=== PATIENT | female | born 1935 | race Caucasian/White ===

== ENCOUNTER → 2024-04-22 13:03 | Outpatient (REF) | payer OTHER, SELFPAY | LOC: HWRAD 13:03 | PROVIDERS: ATTENDING PHYSICIAN Internal Medicine | DX: E04.1 Nontoxic single thyroid nodule (principal); R49.0 Dysphonia | CPT/HCPCS: 71046; 76536 ==

== ENCOUNTER → 2024-11-15 12:35 | Outpatient (REF) | payer OTHER, SELFPAY | LOC: HWRCS 12:35 | PROVIDERS: ATTENDING PHYSICIAN Internal Medicine Cardiovascular Disease; FAMILY PHYSICIAN Internal Medicine | DX: I25.10 Atherosclerotic heart disease of native coronary artery without angina pectoris (principal) | CPT/HCPCS: 93306 ==

== ENCOUNTER 2025-01-30 18:01 | Inpatient (IN) | payer OTHER, SELFPAY ==
[2025-01-30] VITALS (12 sets, daily range): BP systolic 138–171; BP diastolic 59–129
[2025-01-30 14:55] LABS: Hematocrit 43.2 % (37.0-47.0); Hemoglobin 14.5 g/dL (12.0-16.0); Mean Corp Hgb Conc. 33.6 g/dL (33.0-37.0); Mean Corpuscular Volume 89.8 fL (81.0-99.0); Nucleated Red Blood Cells % 0 %; Platelet Count 250 10^3/uL (130-400); Red Cell Dist. Width 12.8 % (11.5-14.5)
[2025-01-30 15:24] LABS: ALT (SGPT) 39 U/L (0-35); AST (SGOT) 45 U/L (14-36); Albumin 3.9 g/dl (3.5-5.0); Alkaline Phosphatase 173 U/L (38-126); Blood Urea Nitrogen 24 mg/dl (7-17); Calcium 9.5 mg/dl (8.4-10.2); Carbon Dioxide 22 mmol/L (22-30); Chloride 100 mmol/L (98-107); Glucose 294 mg/dl (70-99); Potassium 5.8 mmol/L (3.5-5.1); Sodium 130 mmol/L (135-145); Total Protein 7.0 g/dl (6.3-8.2); eGFR > 60.00
[2025-01-30 15:29] LABS: Troponin I 0.013 ng/ml
--- NOTE | 2025-01-30 15:53 | ED.GENMED ---
History of Present Illness
General
Chief Complaint: Heart Rate Problem
Source: patient and family
Exam Limitations: none
Time Seen by Provider: 01/30/25 15:45
History of Present Illness
History of Present Illness:
See MDM
Past History
Past History
ED Past Medical History: HTN, Hypercholesterolemia and NIDDM
ED Past Surgical History: Orthopedic
Social History
Tobacco: Non-smoker
Alcohol: None
Personal:
Living: with family
Phy Exam
Physical Exam
Physical Exam:
See MDM
Course
Orders/Labs/Results
Orders:
Orders
01/30/25 14:17
ECG [Electrocardiogram (*1)] Urgent
Reason for Study: Palpitations
EKG- Treatment ONCE
01/30/25 14:44
Complete Blood Count/With Diff Urgent
Comprehensive Metabolic Panel Urgent
Pro-BNP [NT-proBNP] Urgent
Troponin I Urgent
01/30/25 15:52
CR Chest Portable - 1 View Urgent
Comment:
Reason For Exam: SOB, hypoxia
Reason Study Needs to be Portable: Patient Unstable
01/30/25 15:56
COVID-19 Antigen Urgent
Source: Nasal Swab
Influenza A+B Rapid Molecular Urgent
LUDMILA Source: Nasal Swab
Specimen Description:
01/30/25 16:14
Azithromycin 500 mg/250 ml [Zithromax Infusion] 500 mg in 250 ml IV NOW
CefTRIAXone [Rocephin] 1,000 mg IV NOW STA
Furosemide [Lasix] 40 mg IV NOW STA
01/30/25 16:30
Blood Culture Q30M
LUDMILA Source: Blood/Venous
Specimen Description:
01/30/25 17:00
Blood Culture Q30M
LUDMILA Source: Blood/Venous
Specimen Description:
Abnormal Lab Results
01/30/25
14:44
WBC 11.7 H 10^3/uL
(4.8-10.8)
MPV 10.5 H fL
(7.4-10.4)
Absolute Neuts (auto) 9.9 H 10^3/uL
(1.4-6.5)
Absolute Lymphs (auto) 1.0 L 10^3/uL
(1.2-3.4)
Absolute Monos (auto) 0.7 H 10^3/uL
(0.1-0.6)
Neutrophils % 84.4 H %
(42.2-75.2)
Lymphocytes % 8.7 L %
(20.5-51.1)
Sodium 130 L mmol/L
(135-145)
Potassium 5.8 H mmol/L
(3.5-5.1)
BUN 24 H mg/dl
(7-17)
Glucose 294 H mg/dl
(70-99)
AST 45 H U/L
(14-36)
ALT 39 H U/L
(0-35)
Alkaline Phosphatase 173 H U/L
(38-126)
01/30/25 14:44
01/30/25 14:44
Vital Signs
Initial and Last Documented VS:
Initial Vital Signs
Temp Pulse Resp BP Pulse Ox
98.1 F 81 24 164/64 85
01/30/25 14:26 01/30/25 14:26 01/30/25 14:26 01/30/25 14:26 01/30/25 14:26
Last Documented Vital Signs
Temp Pulse Resp BP Pulse Ox
98.1 F 77 20 148/69 88
01/30/25 14:26 01/30/25 15:32 01/30/25 15:32 01/30/25 15:32 01/30/25 15:55
MDM/Problems Addressed
Differential Diagnosis Includes:
Note:
CHIEF COMPLAINT(S)
SOB
HISTORY OF PRESENT ILLNESS
The patient is an 89-year-old female presenting with hypoxia. She reports feeling shaky and not well. She denies being on home oxygen and denies having a history of chronic obstructive pulmonary disease (COPD) or congestive heart failure, although
she mentions having a history of a cardiac stent placement. The patient initially noticed symptoms yesterday. She has been experiencing a productive cough, typically occurring in the morning. Blood work revealed hyperkalemia; the patient mentioned
being taken off valsartan by her physician due to elevated potassium levels. The patient was advised to recheck potassium levels on the . Patient initially placed on 4 L nasal cannula but respiratory was called for mid flow.
CHRONIC MEDICAL CONDITIONS SIGNIFICANTLY AFFECTING CARE
Chronic conditions affecting care: Stent placement, hyperkalemia.
SOCIAL DETERMINANTS OF HEALTH
The patient expressed dissatisfaction with being compelled to receive a COVID-19 vaccination, resulting in a past rash.
PHYSICAL EXAM
General: Short of breath, mildly uncomfortable
Skin: Warm, dry.
Head: Normocephalic, atraumatic
Neck: Appears supple, trachea midline.
Eyes, Ears, Nose, Mouth, and Throat: Moist mucous membranes
Cardiovascular: No signs of cyanosis
Respiratory: Mild tachypnea with decreased breath sounds in the bases
Abdomen: Non-distended
Musculoskeletal: No deformities. No leg edema
Neurological: No focal neurological deficit observed.
Psychiatric: Cooperative, appropriate mood and affect.
PLAN
The plan is to order tests for COVID-19 and influenza, initiate a portable chest X-ray, and consider a CT scan to rule out the presence of a blood clot if the X-ray does not reveal a clear cause of the hypoxia.
DIFFERENTIAL DIAGNOSIS
The Differential Diagnosis includes, in no particular order and is not limited to:
- Pneumonia
- Pulmonary embolism
- Chronic obstructive pulmonary disease exacerbation
- Acute respiratory distress syndrome
- Congestive heart failure
- Interstitial lung disease
- Myocardial infarction
- Pulmonary hypertension
- Asthma exacerbation
- Bronchitis
SUMMARY OF ENCOUNTER
The patient was seen in the emergency department due to low oxygen saturation levels. Initial laboratory work indicated hyperkalemia. Evaluation involves checking for respiratory infections (COVID-19, influenza) and conducting imaging to ascertain
the cause of hypoxia. The patient will remain for overnight observation to monitor oxygen levels and further examination.
DISPOSITION
Patient to stay overnight for observation.
INDEPENDENT REVIEW OF LABS AND INTERPRETATION OF TESTS
My independent review of blood work indicates elevated potassium levels.
PATIENT EDUCATION AND COUNSELING
The patient was informed about the tests being ordered (COVID-19, influenza, and portable chest X-ray) and the potential need for a CT scan if further investigation is required.
MEDICATION RECONCILIATION
The patient reported discontinuation of valsartan due to elevated potassium levels under the guidance of Dr. Borrego.
MEDICAL DECISION MAKING
1. Number and Complexity of Problems Addressed:
Chronic conditions affecting care: Stent placement, hyperkalemia.
2. Data:
Category 1:
- Initial blood work reviewed indicating hyperkalemia.
- Plan to order COVID-19 and influenza tests.
- Plan to order a portable chest X-ray.
Category 3:
The potential need for CT scan to rule out blood clot if the X-ray is inconclusive.
3. Risk:
Consideration of Admission/Observation: Given the patients hypoxia and hyperkalemia, observation is warranted to monitor oxygen levels and complete diagnostic workup.
DIAGNOSIS
- Hypoxia, unspecified cause (ICD-10: R09.02)
- Hyperkalemia (ICD-10: E87.5)
- Suspected Respiratory Infection (ICD-10: J98.9)
EKG
My independent EKG interpretation is:
- Time of EKG: Not specified
- Rhythm: Sinus rhythm
- Heart rate: 84 beats per minute
- [place]: Normal
- ST segment: No ST elevation
SUMMARY OF ENCOUNTER
The patient, an 89-year-old female, presented to the emergency department with hypoxia and a suspected respiratory infection. Initial imaging raised concerns for bilateral pleural effusions and possible pneumonia, accompanied by mild leukocytosis.
As part of the management plan, the decision was made to administer intravenous furosemide (Lasix) to promote diuresis and to start antibiotics to treat suspected bacterial pneumonia. Due to the patients hypoxic condition, further observation and a
more comprehensive management plan dictated that admission was necessary.
DISPOSITION
Admit
ASSESSMENT
The patient is presenting with hypoxia of an unspecified cause, accompanied by elevated potassium levels (hyperkalemia) and concerns for bilateral pleural effusions and bacterial pneumonia. Differential diagnoses include pneumonia and potential
fluid overload.
EMERGENCY TREATMENTS ADMINISTERED
Intravenous furosemide (Lasix) was administered to reduce fluid overload by promoting diuresis.
PLAN
The plan includes admission for further monitoring and management of hypoxia and potential pneumonia. Antibiotic therapy will be initiated to address the suspected bacterial infection, and diuretics will be administered to manage fluid overload.
INDEPENDENT REVIEW OF LABS AND INTERPRETATION OF TESTS
My independent review of lab results indicates mild leukocytosis and elevated potassium levels (hyperkalemia). My independent interpretation of the chest X-ray suggests concerns for bilateral pleural effusions.
MEDICATION RECONCILIATION
The patient is not currently on valsartan due to elevated potassium levels, as advised by Dr. Borrego. Intravenous furosemide (Lasix) was administered as part of emergency treatment.
MEDICAL DECISION MAKING
1. Number and Complexity of Problems Addressed: Chronic conditions affecting care include a history of stent placement and hyperkalemia.
- Differential diagnoses considered: Pneumonia, pulmonary embolism, chronic obstructive pulmonary disease exacerbation, acute respiratory distress syndrome, congestive heart failure, interstitial lung disease, myocardial infarction, pulmonary
hypertension, asthma exacerbation, bronchitis.
2. Data:
- Category 1: Tests and documents include lab findings of hyperkalemia and mild leukocytosis, as well as chest X-ray findings.
- Category 3: The necessity for antibiotic treatment and diuretics was discussed with a healthcare provider, given the patients hypoxia and potential pneumonia.
3. Risk: Consideration of admission was necessary due to the patients hypoxic condition, possible pneumonia, and elevated potassium levels, warranting close observation and further diagnostics.
DIAGNOSIS
- Hypoxia, unspecified cause (ICD-10: R09.02)
- Hyperkalemia (ICD-10: E87.5)
- Suspected bacterial pneumonia (ICD-10: J18.9)
*Pulse Oximetry
SaO2: 88
Nasal Cannula flow liters per minute: 6
Oxygen Mode of Delivery: Room air
Patient hypoxic: yes
*Critical Care Note
Total Time (30-74mins, 75-104mins- exclusive of procedures): 33 min
comment:
The high probability of a clinically significant, sudden or life threatening deterioration of the cardiopulmonary system(s) required my full and direct attention, intervention and personal management. The aggregate critical care time was 33 minutes.
This time is in addition to time spent performing reported procedures but includes the following:
[x] Data Review and interpretation
[x] Patient assessment and monitoring of vital signs
[x] Documentation
[x] Medication orders and management
ED Attending Note
-
Portions of this chart may have been created with voice recognition software.� Occasional wrong word or��sound alike� substitutions may have occurred due to the inherent limitations of voice recognition software.
Discharge Plan
Departure
Patient Disposition: Admit
Date of Disposition: 01/30/25
Time of Disposition: 16:25
Admit to: Telemetry
Presentation/result/management discussed w/ accepting MD/DO: Hospitalist
Discharge Problem:
Acute CHF, Hypoxia
Prescriptions:
No Action
metformin 500 mg Tablet
500 mg PO DAILY
atenolol 25 mg Tablet
25 mg PO DAILY
valsartan 80 mg Tablet
80 mg PO DAILY
amlodipine 5 mg Tablet
5 mg PO DAILY
glipizide 5 mg Tablet
2.5 mg PO QPM
PreserVision AREDS-2 250-90-40-1 mg Capsule
1 tab PO BID
aspirin 81 mg Capsule
81 mg PO DAILY
metformin 500 mg Tablet
250 mg PO QPM
atorvastatin 40 mg Tablet
40 mg PO QPM Qty: 90 3RF
clopidogrel 75 mg Tablet
75 mg PO DAILY Qty: 90 3RF
Referrals:
Mary Eason DO [Family Provider, Internal Medicine]
Interventions
Interventions:
*Risk Screen - Suicide Last Done: 01/30/25 14:26
*General Assessment Last Done: 01/30/25 14:26
*Neglect/Abuse Screening Last Done: 01/30/25 14:26
*ED COVID-19 Vaccine History Last Done: 01/30/25 15:46
*ED Influenza Vaccine History Last Done: 01/30/25 15:46
ED- Cardiac Assessment Last Done: 01/30/25 15:46
ED- Pulmonary Assessment Last Done: 01/30/25 15:46
Discharge Date and Time
Print Language: CENTRAL AFRICAN
[2025-01-30 16:22] LABS: COVID-19 Antigen Negative (Negative)
[2025-01-30] MEDS: LASIX 40 MG IV (16:29)
[2025-01-30] MEDS: ROCEPHIN 1000 MG IV (16:29)
[2025-01-30] MEDS: ZITHROMAX INFUSION 250 IV (16:30)
--- NOTE | 2025-01-30 16:31 | HPS.HSE ---
Addendum entered and electronically signed by Jeimy Gaytan MD 01/30/25 19:49:
This is an addendum to H&P written by Esther Dubois on 01/30/2025. 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
89-year-old female past medical history of hypertension, hypercholesteremia, CAD, type 2 diabetes, presenting with lightheadedness, shortness of breath and chest pressure for 2 days.� Occasionally productive cough for week. Weight stable.
Vital signs show hypoxemia requiring 14 L oxygen.�
Labs show potassium 5.8. �Sodium 130. �Blood sugar 294. �Mild transaminitis. �COVID and flu negative. �Cardiac BNP 500. Troponin 0.013. EKG shows incomplete RBBB which is old.�
Patient with acute hypoxemic respite failure secondary to pneumonia and what appears to be left pleural effusion. �Chest x-ray report pending.
Ceftriaxone/Zithromycin. �Check sputum culture, blood cultures, strep antigen, Legionella, MRSA.
�Was given 40 IV Lasix but data not suggestive of congestive heart failure.
Hyperkalemia unclear etiology is no longer on losartan. �Monitor with Lasix.
Insulin sliding scale for hyperglycemia secondary to infection. �Check A1c.
Original Note:
Family Physician
-
Family Physician: Mary Eason
Chief Complaint
-
shortness of breath
History of Present Illness
Patient is a 89-year-old female with past medical history significant for hypertension, hyperlipidemia, coronary artery disease and type 2 diabetes who presented to [facility] ED for evaluation of shortness of breath. Patient reports that she has been
having intermittent lightheadedness at home for sometime. She reports shortness of breath for the last 2 days with associated chest pressure. Patients daughter at bedside reports that patient has been staying with her since Friday for the holiday
and has observed shortness fo breath since arrival. Patient normally resides at [facility] in independent living. She acknowledges mild edema to bilateral ankles frequently. Denies any fever, chills, cough, palpitations, nausea, vomiting,
constipation or diarrhea.
Medical History
Past Medical History
Past Medical History: Reports Other
Additional Past Medical History:
hypertension
hyperlipidemia
coronary artery disease
type 2 diabetes
Past Surgical History: Reports Other
Additional Past Surgical History:
left knee replacement 2017
cardiac cath with stent 12/03/2021
Social History
Tobacco: Non-smoker
Alcohol: Occasional (rarely )
Drug: None
Personal:
Living: Alone
Family History
Family History: Other (Mother: CVAx2 Son: aortic/mitral stenosis ( at age 10) Brother: MA () Sister: pacer )
Allergies / Home Medications
Allergies reflects when Allergies were last updated in [employer].
Home Medications with original date entered in [employer]
Allergy/Medication List:
Allergies
Allergy/AdvReac Type Severity Reaction Status Date / Time
No Known Allergies Allergy Verified 01/30/25 14:25
Home Medications
amlodipine 5 mg tablet 5 mg PO BID 12/03/21
aspirin 81 mg capsule 81 mg PO DAILY 12/03/21
atenolol 25 mg tablet 25 mg PO DAILY 12/03/21
atorvastatin 40 mg tablet 40 mg PO QPM #90 tabs 12/03/21
glipizide 5 mg tablet 2.5 mg PO DAILY 12/03/21
metformin 500 mg tablet 500 mg PO BID 12/03/21
Held on 12/03/21. Instructions: Resume on 12/05/21. HOLD post cath- OK to resume on 12/05 in AM
vit C 250 mg-vit E 90 mg-zinc 40 mg-copper 1 [id number] capsule (PreserVision AREDS-2) 1 tab PO BID 12/03/21
Review of Systems
-
History Source: Patient
Constitutional: Denies Fever or Chills
EENT: Denies Sore Throat
Respiratory: Reports Trouble Breathing (dyspnea at rest ); Denies Cough or Hemoptysis
Cardiac: Reports Chest Pain (chest pressure ); Denies Diaphoresis, Palpitations or Syncope
Abdomen/GI: Denies Abdominal Pain, Nausea, Vomiting or Diarrhea
: Denies Dysuria, Frequency or Urgency
Musculoskeletal: Denies Joint Pain
Skin: Denies Rash
Neurological: Reports Dizzy (lightheadedness ); Denies Headache, Weakness or Numbness
Endocrine: Denies Polyuria or Polydipsia
Physical Exam
Vital Signs
Vital Signs
Temp Pulse Resp BP Pulse Ox
98.1 F 77 20 148/69 88
01/30/25 14:26 01/30/25 15:32 01/30/25 15:32 01/30/25 15:32 01/30/25 15:55
Physical Exam
General: Well Developed, Well Nourished, Comfortable, Conversant and Respiratory Distress (hypoxic on 10L with conversation to upper 80s)
HEENT: NormoCephalic, Moist mucous membranes, PERRLA, Nose Appears Normal and Ears Appear Normal
Respiratory: Clear (tachypnea) and Decreased Breath Sounds (in bilateral lower lobes ); No Wheezes, Rales or Rhonchi
Cardiac: S1/S2, Regular Rhythm and Peripheral Edema (+1 pitting to bilateral lower extremities ); No Murmur, Rub or Gallop
GI: Soft, Non Tender, Non Distended and Normal Bowel Sounds
Musculoskeletal: No Clubbing and No Cyanosis
Skin: Warm and IV/Catheter Site
Neuro: Awake and AO x 3
Psych: Calm and Intact Judgment/Insight
Laboratory Results
-
01/30/25 14:44
01/30/25 14:44
Laboratory Results
Total Bilirubin 0.9 mg/dl (0.2-1.3) 01/30/25 14:44
AST 45 U/L (14-36) H 01/30/25 14:44
ALT 39 U/L (0-35) H 01/30/25 14:44
Alkaline Phosphatase 173 U/L (38-126) H 01/30/25 14:44
Troponin I 0.013 ng/ml 01/30/25 14:44
Data Reviewed
-
Medical Tests (Nuc Med, Echo, EKG etc): Report Reviewed by me (EKG: NORMAL SINUS RHYTHM LOW VOLTAGE QRS INCOMPLETE RIGHT BUNDLE BRANCH BLOCK NONSPECIFIC ST AND T WAVE ABNORMALITY)
Lab Data: Labs Reviewed by me (WBC 11.7, Neut 84.4, Na 130, K 5.8, BUN 24, AST 45, ALT 39, Alk Phos 173, trop 0.013, pBNP 517)
Impression/Plan
-
IMPRESSION/PLAN:
#shortness of breath, chest pressure and lightheadedness 2/2 NSTEMI vs. PNA
#hypoxic respiratory failure
#left pleural effusions
patient with intermittent lightheadedness for sometime with, new shortness of breath and chest pressure x2 days, found to have hypoxia at ED arrival
patient reports DNR/DNI (currently on 10L)
WBC 11.7, Neut 84.4, trop 0.013, pBNP 517
CXR: report pending
EKG: NORMAL SINUS RHYTHM
LOW VOLTAGE QRS
INCOMPLETE RIGHT BUNDLE BRANCH BLOCK
NONSPECIFIC ST AND T WAVE ABNORMALITY
- Admit to IMU
- IV Lasix given in ED
- IV Ceftriaxone and Azithromycin
- supportive care
#transaminitis
AST 45, ALT 39, Alk Phos 173
- monitor LFTs
#hyponatremia
Na 130
- IV diuresis
- monitor BMP
#hyperkalemia
K 5.8
patient reports hyperkalemia 2-3 weeks ago and industrial hygiene manager stopped Valsartan and changed amlodipine to BID
- IV diuresis
- monitor BMP
#hypertension
- continue amlodipine and atenolol
#hyperlipidemia
- continue atorvastatin
#coronary artery disease
s/p cardiac cath with stent 12/03/2021
- continue aspirin
#type 2 diabetes
- AccuCheck AC & HS
- SSI
- hold metformin and glipizide while acutely ill
Code status: DNR/DNI
DVT prophylaxis: Lovenox sq
[2025-01-30] MEDS: ZOFRAN 4 MG IV (18:14)
[2025-01-30 19:33] LABS: Troponin I 0.017 ng/ml
--- NOTE | 2025-01-30 20:03 | W.PN.UPDATE ---
Update Note
Progress Note Update
Patient oxygen titrated to 15 Liters and continued to be hypoxic into upper 80s. Antibiotics changed to Vanco, Zosyn and Azithromycin.
[2025-01-30] MEDS: ZOSYN 100 IV (20:32)
[2025-01-30] MEDS: VANCOCIN 530 MG IV (21:07)
[2025-01-30] MEDS: LIPITOR 40 MG PO (22:33)
[2025-01-30] MEDS: LOVENOX 40 MG SC (22:33)
[2025-01-30] MEDS: NORVASC 5 MG PO (22:33)
--- NOTE | 2025-01-30 22:54 | PHA.VAN.IN ---
Assessment
- Assessment
Renal Function: Appears similar to baseline
Maximum Temperature: 98.1F
Minimum Temperature: 98.1F
Concomitant Antimicrobials: Azithromycin, Zosyn
Plan
- Plan
Initial / Loading Dose: 1500MG
Maintenance Regimen: PRN by level (although CrCl 32 mL/min, 750MG Q24H predicted AUC 599)
Monitoring: Random vancomycin 01/31/25 @0600 (approximately 9 hours post-load)
MRSA Screen: Ordered per protocol
Pharmacokinetics Vancomycin I
- -
Patient Age: 89
Patient Sex: Female
Vancomycin Day #: 1
Indication: Pulmonary/Respiratory
Requesting Provider: Sherly
Pertinent Antimicrobial Allergies:
NKDA
Height / Weight:
Height 5 ft 1 in
Actual Weight 58.7 kg
Pertinent Past Medical History: SOB x2 days, intermittent productive cough x1 week
- Vital Signs / Lab Results
Temp Pulse Resp BP Pulse Ox
98.1 F 75 28 140/65 92
01/30/25 20:42 01/30/25 22:33 01/30/25 20:30 01/30/25 22:33 01/30/25 20:42
Lab Results - Hematology
01/30/25
14:44
WBC 11.7 H
Lab Results - Chemistry
01/30/25
14:44
BUN 24 H
Creatinine 0.9
Albumin 3.9
Microbiology Results
01/30/25 15:56 Influenza Types A & B (TAMMIE) - Final
Nasal Swab Negative for Influenza A & B, NAAT
Negative results must be combined with clinical observations
and patient history.
Nucleic Acid Amplification test (NAAT)performed on the
[employer] platform.
[2025-01-30 23:18] LABS: Blood Urea Nitrogen 23 mg/dl (7-17); Calcium 8.7 mg/dl (8.4-10.2); Carbon Dioxide 27 mmol/L (22-30); Chloride 101 mmol/L (98-107); Estimated Creatinine Clearance 29 ml/min; Glucose 191 mg/dl (70-99); Potassium 4.2 mmol/L (3.5-5.1); Sodium 131 mmol/L (135-145); eGFR 53.85
[2025-01-31] VITALS (29 sets, daily range): BP systolic 87–159; BP diastolic 47–94; BMI 24.5
[2025-01-31 00:45] LABS: Procalcitonin 0.12 ng/ml (0.0-0.25)
[2025-01-31 00:59] LABS: Troponin I 0.022 ng/ml
[2025-01-31] MEDS: ZOSYN 100 IV ×2 (02:23→08:48)
--- NOTE | 2025-01-31 04:00 | PTCARENOTE ---
Pt arrived to floor via stretcher from the ED. Pt AAOx3. HR in the 80's in NSR with BBB on the monitor. POX 75% on 15L MidFlow NC upon arrival. RT at bedside to place pt on Hi Flow NC. POX 92% at rest on 40L/100%. Lungs dec with fine scattered
crackles. BABIN/Tachypneic. + bowel. Pure wick in place due to resp status. trace LE edema. Palpable peripheral pulses. Right AC int capped. Pt report left groin pain post left knee replacement which is a chronic pain with certain movements. Pt
positioned in bed per comfort. Call spicer in reach. Will continue to monitor.
--- NOTE | 2025-01-31 06:01 | PTCARENOTE ---
Pts pox drops into the low 80's with very little exertion, just with talking pt drops to 84%. Hi Flow increased to 60L/100%. POX 92% at rest without talking or moving. Pt attempted to use bedpan to move bowels, but unable at this time. Pure wick in
place, pt voiding without issues. Call spicer in reach. Will continue to monitor.
[2025-01-31 06:07] LABS: Hematocrit 41.1 % (37.0-47.0); Hemoglobin 14.1 g/dL (12.0-16.0); Mean Corp Hgb Conc. 34.3 g/dL (33.0-37.0); Mean Corpuscular Volume 87.3 fL (81.0-99.0); Platelet Count 246 10^3/uL (130-400); Red Cell Dist. Width 12.9 % (11.5-14.5)
[2025-01-31 06:28] LABS: Blood Urea Nitrogen 21 mg/dl (7-17); Calcium 8.8 mg/dl (8.4-10.2); Carbon Dioxide 25 mmol/L (22-30); Chloride 102 mmol/L (98-107); Estimated Creatinine Clearance 27 ml/min; Glucose 174 mg/dl (70-99); HDL Cholesterol 89 mg/dl; LDL Cholesterol, Calculated 32 mg/dl; Potassium 4.1 mmol/L (3.5-5.1); Sodium 134 mmol/L (135-145); Very Low Density Lipoprotein 20 mg/dl (0-30); eGFR 53.85
[2025-01-31 06:38] LABS: Troponin I 0.023 ng/ml
[2025-01-31 08:01] LABS: Glucose - Point of Care 162 mg/dl (70-99)
[2025-01-31 08:27] LABS: Glycohemoglobin (HgbA1c) 7.0 % (4.0-5.9)
--- NOTE | 2025-01-31 08:37 | W.PN.HOSP.TC ---
Today's Communication/Plan
-
see outlined plan below
Assessment / Plan
Assessment / Plan
Assessment:
Acute hypoxic respiratory failure on Hi-Flow, unclear etiology
- on max hi-flow; next step would be NIV
- CXR: interstitial pulmonary edema pattern with associated bilateral pleural effusions. BNP 517.
- procal unremarkable
- check D. Dimer
- check CT chest
- for now continue IV Lasix, also continue empiric Abx
- ST evaluation
- recent Echo 11/2024: EF 60-65%, mild TR
- Cards and Pulmonary consulted
Mild transaminitis
- trend
- no RUQ pain
acute Hyponatremia in setting of acute lung pathology
- check hyponatremia workup
- check BMP
Acute hyperkalemia
- resolved
Essential HTN
- continue CC/BB
HLD - statin
CAD s/p stent 2021
- continue ASA/Statin
Type 2 dM
- holding Metformin/Glipizide
- SSI
- A1c: 7.0%
DVT ppx: Lovenox
Code: DNR/DNI, confirmed with patient
Plan d/w Daughter Tatiana
Anticipated Discharge: > 48 hours
Subjective/Interval History
-
Date of Service: January 31, 2025
reports SOB with rest/exertion/laying flat at home. no fever/chills. mild cough, gottlieb sputum production. no chest pains. no LE edema
now on max High flow; 92%
Objective Data
-
Labs:
Laboratory Results
01/30/25 01/31/25 01/31/25
22:39 05:38 05:39
WBC 11.9 H
Hgb 14.1
Hct 41.1
Plt Count 246
Sodium 131 L 134 L
Potassium 4.2 D 4.1
Chloride 101 102
Carbon Dioxide 27 25
BUN 23 H 21 H
Creatinine 1.0 1.0
Glucose 191 H 174 H
Calcium 8.7 8.8
Vital Signs:
Vital Signs
Temp Pulse Resp BP Pulse Ox
97.5 F 78 18 153/64 92
01/31/25 07:21 01/31/25 06:30 01/31/25 06:30 01/31/25 06:00 01/31/25 08:26
I&O
01/30/25 01/31/25 02/01/25
06:59 06:59 06:59
Output Total 400 / 400
Balance -400 / -400
Physical Exam
-
General: Respiratory Distress (mild)
HEENT: Normocephalic and Atraumatic
Respiratory: Crackles
Cardiac: Regular Rhythm and S1/S2
GI: Soft
Musculoskeletal: No Edema
Neuro: AO x 3
Psych: Calm
Data Reviewed
-
Total Time Spent with Patient (in minutes): 44
Labs: Labs Reviewed by me
--- NOTE | 2025-01-31 08:40 | PTCARENOTE ---
Assumed care of pt at 0715 following shift report. Pt received on [place] O2, maximum amount. Pox mid 90's when resting quietly and not talking. With conversation, pt's POx drops into mid to low 80's. Pt states breathing feels 'a little bit better'
than when presented to ER. Physical assessment completed as documented. Comfort care/hygiene provided to pt. Call spicer w/in pt reach and safe environment maintained.
[2025-01-31] MEDS: LASIX 40 MG IV ×2 (08:46→16:45)
[2025-01-31] MEDS: NORVASC 5 MG PO ×2 (08:47→20:31)
[2025-01-31] MEDS: ASPIR LOW (ENTERIC COATED) 81 MG PO (08:47)
[2025-01-31] MEDS: TENORMIN 25 MG PO (08:47)
--- NOTE | 2025-01-31 08:55 | CON.PUL ---
Consultation
Consultation Request
Date/Time Consultation Requested: 01/31/25
Date/Time Consultation Performed: 01/31/25
Performing Provider: Pedro
Reason for Consultation: PNA/CHF
Medical History
-
History of Present Illness:
89-year-old female with previous history of hypertension, CAD, diabetes presenting to ER with lightheadedness, shortness of breath, productive cough and chest pressure for the past 2 days. On arrival to ER, chest x-ray demonstrating bilateral
pleural effusions, she was notably hypoxemic and placed on oxygen at 14 L. Admitted to IMU for high flow nasal cannula for ongoing hypoxemia, and heart failure exacerbation.
Allergies / Home Medications
Allergies
Allergy/AdvReac Type Severity Reaction Status Date / Time
No Known Allergies Allergy Verified 01/30/25 14:25
Home Medications
�Medication �Instructions �Recorded �Confirmed �Last Taken �Type
amlodipine 5 mg tablet 5 mg PO BID Blood Pressure 12/03/21 01/30/25 01/30/25 History
aspirin 81 mg capsule 81 mg PO DAILY Blood Clot 12/03/21 01/30/25 01/30/25 History
Prevention/Tx
atenolol 25 mg tablet 25 mg PO DAILY Blood Pressure 12/03/21 01/30/25 01/30/25 History
atorvastatin 40 mg tablet 40 mg PO QPM #90 tabs 12/03/21 01/30/25 01/29/25 Rx
glipizide 5 mg tablet 2.5 mg PO DAILY Diabetes 12/03/21 01/30/25 01/30/25 History
acetaminophen 500 mg tablet 1,000 mg PO DAILYPRN PRN mild pain 01/30/25 01/30/25 01/29/25 History
loperamide 2 mg tablet 2 mg PO DAILYPRN PRN diarrhea 01/30/25 01/30/25 01/26/25 History
metformin 500 mg tablet 500 mg PO BID Diabetes 01/30/25 01/30/25 01/30/25 History
vit C 250 mg-vit E 90 mg-zinc 40 1 tab PO BID Supplement 01/30/25 01/30/25 01/30/25 History
mg-copper 1 [id number]
capsule (PreserVision AREDS-2)
Review of Systems
Vitals / Labs / Diagnostic Testing
Vital Signs
Temp Pulse Resp BP Pulse Ox
97.5 F 84 18 151/62 92
01/31/25 07:21 01/31/25 08:47 01/31/25 06:30 01/31/25 08:47 01/31/25 08:26
Lab Data
01/31/25 05:38
01/31/25 05:39
Microbiology
01/30/25 22:39 Urine Legionella Urinary Antigen - Final
Negative for Legionella pneumophila Serogroup 1 antigen.
A negative result does not rule out the possiblity of
Legionella infection due to other serogroups or species of
Legionella. Clinical correlation is recommended.
01/30/25 22:39 Urine Streptococcus pneumoniae Antigen (M - Final
Negative for Streptococcus pneumoniae antigen.
A negative result does not exclude infection with
Streptococcus pneumoniae. Clinical correlation is
recommended.
01/30/25 15:56 Nasal Swab Influenza Types A & B (TAMMIE) - Final
Negative for Influenza A & B, NAAT
Negative results must be combined with clinical observations
and patient history.
Nucleic Acid Amplification test (NAAT)performed on the
[employer] platform.
Diagnostic Testing:
Assessment
-
89-year-old female with previous history of hypertension, CAD, diabetes presenting to ER with lightheadedness, shortness of breath, productive cough and chest pressure for the past 2 days. On arrival to ER, chest x-ray demonstrating bilateral
pleural effusions, she was notably hypoxemic and placed on oxygen at 14 L. Admitted to IMU for high flow nasal cannula for ongoing hypoxemia, and heart failure exacerbation. We are consulted for evaluation.
Acute hypoxic respiratory failure
Acute heart failure exacerbation (pEF)
Pulmonary edema on chest x-ray/pleural effusion
Shortness of breath, productive cough, chest pressure
Mild leukocytosis
Mild hyponatremia
Hyperglycemia
Mild transaminitis
Conditions present BALER
Hypertension
Hyperlipidemia
Coronary artery disease s/p cardiac cath with stent 12/03/2021
Type 2 diabetes
Left knee replacement 2017
Snoring, patient has declined sleep study
Calcified pleural plaques on chest x-ray
Plan
Hypoxemia noted on arrival, placed on 14L
Does not have baseline use at home
Now on HFNC at 100%, she is DNR
Home O2 evaluation --eventually
Prior history of lung disease is noted including possible asbestos exposure
She has pleural plaques on imaging but otherwise was not diagnosed with any other lung conditions in the past
No prior PFTs for review
Suspect patient has heart failure exacerbation with preserved EF given pleural effusion and resultant compressive atelectasis
CXR/CT obtained indicating pleural effusion, pulmonary edema, difficult to exclude underlying pneumonia
She was started on IV antibiotics
Other imaging reviewed--chronic pleural plaques noted on prior imaging
D-dimer obtained which is elevated but when adjusted for age is unlikely indication for VTE
She has other causes for hypoxemia
Would consider obtaining diagnostic and therapeutic thoracentesis based on CT findings
Prior ECHO results are reviewed indicating stable function, this was recently completed in November
Cardiology consult obtained
Agree with IV diuresis as tolerated
Will need outpatient pulmonary evaluation in our office for PFTs and 6MWT
Reviewed with patient
Risk factors assessed for underlying sleep disordered breathing also noted, recommend outpatient PSG/sleep evaluation
She is DNR, I confirmed this on review today
Her daughter is at bedside, we reviewed plan of care
We will follow
Diagnostic Data
Chest X-Ray: 01/30/25-Radiographic findings highly suggestive of interstitial pulmonary edema pattern with associated bilateral pleural effusions, likely on the basis of CHF.
04/22/24- 1. No acute pulmonary abnormality appreciated. 2. Calcified pleural plaques bilaterally, consistent with asbestos related pleural disease.
11/17/21- Scattered bilateral calcified densities, appearance compatible with bilateral calcified pleural plaques. Findings would be suggestive of previous asbestos exposure.
CT Scan:
Echo: 11/15/24- 1. Normal left ventricular chamber size myocardial thickness and systolic function. Ejection fraction 60-65%.
2. Mild tricuspid regurgitation with PASP 37 mmgHg.
3. Compared to previous echo from December 2021, findings are similar.
PFT's:
Reports and relevant images were personally reviewed.
Total time spent on this consultation __75__ minutes which includes review of history, physical exam, medications, laboratory data, personal review of imaging, extensive review of outpatient records, discussion with care team and respiratory therapy.
[2025-01-31] MEDS: NOVOLOG FLEXPEN-LOW RESISTANCE 1 UNITS SC (09:00)
--- NOTE | 2025-01-31 09:21 | CON.CAR ---
Addendum entered and electronically signed by Abi Fernandez DO 01/31/25 14:11:
Patient had CT chest not CTA chest. Will await 2D echocardiogram not yet completed. Defer decision for IV heparin given elevated D-dimer to primary service and pulmonary/critical care
Addendum entered and electronically signed by Abi Fernandez DO 01/31/25 11:20:
I saw and examined the patient.
[employer]'s note was reviewed and I agree with the note.
Comment: Patient was seen and examined with daughter at bedside. She is known to me from the outpatient setting. Saloni was last seen in cardiology office on 11/08/2024. A subsequent output echo on 11/15/2024 found normal biventricular size and
systolic function with normal diastolic function and EF 65%. Estimated pulmonary artery systolic pressure 37 mmHg assuming a right atrial pressure of 3 mmHg. Trace aortic and mitral insufficiency and mild tricuspid insufficiency. No significant
change to this current echocardiogram when compared to a previous 01 December 2021. Around that same time patient had outpatient labs that showed hyperkalemia and her PCP stopped her dose of valsartan 80 mg BID mid November. Patient called
cardiology office with increasing BP by home readings and her amlodipine was increased to 5 mg BID and response. Saloni came to the emergency room with increased SOB/increased WOB over the last week and was admitted with acute hypoxic respiratory
failure. Patient's daughter states that she has been lightheaded and dizzy over the last few weeks with fear of falling and has become relatively sedentary. She has been compliant with her medications and has had no sick contacts. Denies fevers
chills but is having a productive cough with clear/yellow sputum. No chest pain or pressure. Denies lower extremity edema or calf pain. Saloni was over her daughter's house for the holidays and was noted to have increased shortness of breath
prompting emergency room visit found to be markedly hypoxic requiring high flow nasal cannula O2 currently in ICU 3372. Portable chest x-ray with pulmonary edema and bilateral pleural effusions. 12 EKG normal sinus rhythm with incomplete right
bundle branch block and nonspecific ST-T wave abnormalities. Flu/COVID-negative. D-dimer positive, 1.9 with CTA pending. Sodium initially 130, potassium 5.8 which has improved to 134/4.1. Creatinine 1. AST/ALT 40/38, alkaline phosphatase 145.
Cardiac troponin flat: 0.013, 0.017, 0.022, 0.023. Procalcitonin 0.12.
GEN: On high flow nasal cannula O2; awake alert and oriented times
HEENT: mmm
LUNGS: High flow at 60 L/100%, dyspneic with conversation, no audible wheeze
CV: Sinus on telemetry. Regular. Positive S1-S2. No murmurs or rubs.
ABD: Soft, nontender. Positive bowel sounds
EXT: Trace B/L LE edema.
NEURO: Gross non-focal
Plan:
Acute hypoxic respiratory distress with elevated D-dimer who has been relatively sedentary over the last month
-Close monitoring of respiratory status as patient may need NIV
-Pulmonary/intensive care consulted
-CTA pending
-Check lower extremity Doppler
-Empiric antibiotics for possible pneumonia, less likely with normal procalcitonin and no fevers. Mild leukocytosis likely reactive
-Possible component of heart failure with preserved ejection fraction although relatively low proBNP 517.
- Repeat 2D echocardiogram
-Continue IV diuretics with close monitoring of sodium/potassium and LFTs
-Add hydralazine plus or minus Isordil for better blood pressure control
-Avoid ABNER/ARB/Aldactone given history of hyperkalemia
-Patient does have a history of coronary artery disease with mid LAD stent in 2021 and relatively flat troponins. Do not suspect that ACS is contributing to current symptoms.
Further recommendations pending above study findings
Original Note:
Consultation
Consultation Request
Date/Time Consultation Requested: 01/31/2025 at 0845
Date/Time Consultation Performed: 01/31/2025 at 0912
Requesting Provider: Dr. Morales
Performing Provider: Dr. Fernandez
Reason for Consultation: Acute HF
Medical History
-
History of Present Illness:
Patient came to the emergency room yesterday with SOB and was admitted with acute hypoxic respiratory failure and cardiology is now consulted for possible acute HF. Patient was last seen in cardiology office on 11/08/2024 and at that time was
referred for echo to follow-up on history of CAD and HTN. As noted above patient completed echo on 11/15/2024 and EF was preserved at 60 to 65% and overall echo unchanged compared to echo from 12/2021. Around that same time patient had outpatient
labs that showed hyperkalemia and her PCP stopped her dose of valsartan 80 mg BID mid November. Patient called cardiology office with increasing BP by home readings and her amlodipine was increased to 5 mg BID and response. Patient says SOB
started rather suddenly 3 days ago and was initially BABIN and then resting SOB. Patient was visibly dyspneic and family wanted to bring her to the hospital, but she refused and finally was so out of breath and weak that she asked the family to bring
her to the hospital yesterday and she was noted to be hypoxic. CXR was concerning for possible CHF and patient was given Lasix 40 mg IV x 1 without much subjective improvement and oxygenation continued to worsen. Patient was also started on
antibiotics for possible PNA and again oxygenation continued to worsen. Patient was eventually started on high flow and remains tenuous on high flow now with the possibility of noninvasive ventilation being considered. Patient says that overall
she feels better compared to admission. Patient had chest pressure on the drive from [place] to the hospital yesterday, but no recurrence and troponin levels undetectable. Patient has a history of LAD PCI in 2021. Patient had CXR 04/22/2024
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
PMH:
h/o HTN
CAD s/p 3.0 mm Promus HERACLIO to the mid LAD 12/03/2021
cRBBB
DM 2
Past Medical History
Past Medical History: Other (In HPI)
Past Surgical History: Cardiac (LAD PCI 12/03/2021) and Orthopedic
Social History
Tobacco: Non-Smoker
Alcohol: Occasional (1-2 drinks a month or less)
Drug: None
Personal:
Living: Alone
Family History
Family History: Cancer, Hypertension and Other (Mother with HTN related CVAs, her son at age 10 while undergoing congenital heart disease surgery)
Allergies / Home Medications
Allergy/AdvReac Type Severity Reaction Status Date / Time
No Known Allergies Allergy Verified 01/30/25 14:25
�Medication �Instructions �Recorded �Confirmed �Type
amlodipine 5 mg tablet 5 mg PO BID Blood Pressure 12/03/21 01/30/25 History
aspirin 81 mg capsule 81 mg PO DAILY Blood Clot 12/03/21 01/30/25 History
Prevention/Tx
atenolol 25 mg tablet 25 mg PO DAILY Blood Pressure 12/03/21 01/30/25 History
atorvastatin 40 mg tablet 40 mg PO QPM #90 tabs 12/03/21 01/30/25 Rx
glipizide 5 mg tablet 2.5 mg PO DAILY Diabetes 12/03/21 01/30/25 History
acetaminophen 500 mg tablet 1,000 mg PO DAILYPRN PRN mild pain 01/30/25 01/30/25 History
loperamide 2 mg tablet 2 mg PO DAILYPRN PRN diarrhea 01/30/25 01/30/25 History
metformin 500 mg tablet 500 mg PO BID Diabetes 01/30/25 01/30/25 History
vit C 250 mg-vit E 90 mg-zinc 40 1 tab PO BID Supplement 01/30/25 01/30/25 History
mg-copper 1 [id number]
capsule (PreserVision AREDS-2)
Review of Systems
-
History Source: Patient
All other systems: Negative unless noted
Physical Exam
Vital Signs
Temp Pulse Resp BP Pulse Ox
97.5 F 84 18 151/62 92
01/31/25 07:21 01/31/25 08:47 01/31/25 06:30 01/31/25 08:47 01/31/25 08:26
GEN: NAD, AAO x 3
HEENT: EOMI, MMM
LUNGS: High flow at 60 L/100%, dyspneic with conversation, no audible wheeze
CV: SR on telemetry. Reg, S1/S2, no murmur
ABD: ND
EXT: Trace B/L LE edema.
NEURO: Gross non-focal
SKIN: No rash
Lab Results
01/31/25 05:38
01/31/25 05:39
Troponin I Cancelled 01/31/25 18:30
Ihp-N-Obnyogfzyii Pept 517 pg/ml 01/30/25 14:44
Impression / Plan
-
PCP: Dr. Mary Eason
Cardiology: Dr. Fernandez
Impression:
Admitted with SOB and acute hypoxic respiratory failure 01/30/2025
Acute hypoxic respiratory failure requiring high flow oxygen therapy
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
Possible PNA
Acute HFpEF
Hyperkalemia
Hyponatremia
Elevated LFTs
HTN emergency
h/o HTN
CAD s/p 3.0 mm Promus HERACLIO to the mid LAD 12/03/2021
cRBBB
DM 2
Echo 11/15/2024: EF 60 to 65%, mild TR with PASP 37 mmHg, unchanged compared to echo 12/2021
Plan:
-Patient came to the emergency room yesterday with SOB and was admitted with acute hypoxic respiratory failure and cardiology is now consulted for possible acute HF. Patient was last seen in cardiology office on 11/08/2024 and at that time was
referred for echo to follow-up on history of CAD and HTN. As noted above patient completed echo on 11/15/2024 and EF was preserved at 60 to 65% and overall echo unchanged compared to echo from 12/2021. Around that same time patient had outpatient
labs that showed hyperkalemia and her PCP stopped her dose of valsartan 80 mg BID mid November. Patient called cardiology office with increasing BP by home readings and her amlodipine was increased to 5 mg BID and response. Patient says SOB
started rather suddenly 3 days ago and was initially BABIN and then resting SOB. Patient was visibly dyspneic and family wanted to bring her to the hospital, but she refused and finally was so out of breath and weak that she asked the family to bring
her to the hospital yesterday and she was noted to be hypoxic. CXR was concerning for possible CHF and patient was given Lasix 40 mg IV x 1 without much subjective improvement and oxygenation continued to worsen. Patient was also started on
antibiotics for possible PNA and again oxygenation continued to worsen. Patient was eventually started on high flow and remains tenuous on high flow now with the possibility of noninvasive ventilation being considered. Patient says that overall
she feels better compared to admission. Patient had chest pressure on the drive from [place] to the hospital yesterday, but no recurrence and troponin levels undetectable. Patient has a history of LAD PCI in 2021. Patient had CXR 04/22/2024
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
-ECG reviewed by me is SR without acute ST changes
-Patient continues with acute hypoxic respiratory failure and currently receiving high flow oxygen at 60 L with 100% and pulse ox is 90% at rest. The possible need for noninvasive ventilation has been brought up to patient and she would not be
opposed.
-Patient currently ordered Zosyn, vancomycin and azithromycin for possible PNA. There is a mild leukocytosis, but she is otherwise afebrile and denies productive cough.
-CXR suggested pulmonary edema, but proBNP was only 517. No evidence of significant LE edema and patient denies any bloating. Recommend ongoing attempts at diuresis and will increase Lasix to 40 mg IV BID starting 01/31/2025, orders placed by me.
Patient was not taking a diuretic prior to admission
-Recheck echo, EF was preserved at 60 to 65% on 11/15/2024
-Hyperkalemia and hyponatremia are improving with attempts at diuresis on my review of labs 01/31/2025
-Patient initially noted to have hyperkalemia on outpatient labs from November and outpatient dose of valsartan 80 mg BID was stopped at that time. Patient reports HTN BP readings since then and patient has been HTN throughout most of her
admission here
-Outpatient dose of atenolol 25 mg daily has been continued
-Outpatient dose of amlodipine 5 mg BID has been continued
-Add hydralazine 20 mg TID now as additional BP control medication, orders placed by me. Pending response would consider adding Imdur ER as the next BP med.
[2025-01-31 09:29] LABS: D-Dimer 1.90 ug/mlFEU (0.00-0.50)
[2025-01-31 09:49] LABS: ALT (SGPT) 38 U/L (0-35); AST (SGOT) 40 U/L (14-36); Albumin 3.3 g/dl (3.5-5.0); Alkaline Phosphatase 145 U/L (38-126); Total Protein 6.1 g/dl (6.3-8.2)
[2025-01-31] MEDS: APRESOLINE 20 MG PO ×3 (11:39→22:05)
[2025-01-31] MEDS: NOVOLOG FLEXPEN-LOW RESISTANCE 2 UNITS SC ×2 (13:09→16:36)
[2025-01-31 13:19] LABS: Glucose - Point of Care 249 mg/dl (70-99)
[2025-01-31 13:24] LABS: LDH 246 U/L (120-246); Total Protein 6.2 g/dl (6.3-8.2)
--- NOTE | 2025-01-31 13:33 | CM ---
Initial assessment completed with daughter. Patient lives alone in a 1st floor apartment at [facility], no steps to enter. 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 She also has a rollator and electric
scooter in the home. No in-home services. Does have HC-POA. No VA benefits. No psychiatric hospitalizations. PCP is Dr. Mary Eason. Pharmacy is [facility] on [facility] property. Discharge POC: TBD.
--- NOTE | 2025-01-31 15:23 | PTCARENOTE ---
Pt AAOx3. Remains on HFNC 60L 100%. BABIN and with eating.
IR at bedside at this time for thoracentesis.
[2025-01-31 16:13] LABS: Body Fluid Second Tech FB
--- NOTE | 2025-01-31 16:18 | PTOTSP ---
Speech Language Pathology
Pt seen for clinical bedside swallow evaluation. Pt and daughter denied any baseline or current swallowing difficulties. Provided thin liquids via cup/straw and regular solids. Adequate mastication, bolus formation, and A-P transit noted with no
oral residue. No overt signs of aspiration. Discussed increased risk of aspiration with increased respiratory demands, suggesting single sips and slow rate.
Recommend:
(1) Regular solids/thin liquids
(2) General aspiration precautions
(3) Meds as tolerated
(4) SOCIAL INSURANCE ADMINISTRATOR to sign off. Please reconsult as indicated
[2025-01-31] MEDS: ZITHROMAX INFUSION 250 IV (16:45)
[2025-01-31 16:49] LABS: Glucose - Point of Care 216 mg/dl (70-99)
[2025-01-31] MEDS: ZOSYN 50 IV (18:03)
[2025-01-31] MEDS: LOVENOX 40 MG SC (18:10)
[2025-01-31] MEDS: LIPITOR 40 MG PO (18:10)
--- NOTE | 2025-01-31 18:18 | PTCARENOTE ---
pt arrived 1809. AOx3 pleasant, daughter and son in law present. ABT finishing. via RFA 20g. experienced nausea with no vomiting, with 2nd ABT. new purewick placed. Lasix administered by ICU nurse. on 15l Midflow. dinner ordered. bed low, call spicer
in reach.
[2025-01-31 22:07] LABS: Glucose - Point of Care 184 mg/dl (70-99)
[2025-01-31 22:29] LABS: Procalcitonin 0.10 ng/ml (0.0-0.25)
[2025-02-01] VITALS (16 sets, daily range): BP systolic 113–153; BP diastolic 50–77; PULSE 75; O2SAT 94; BMI 23.9
[2025-02-01] MEDS: ZOSYN 50 IV ×5 (00:30→23:26)
[2025-02-01 05:20] LABS: Hematocrit 38.4 % (37.0-47.0); Hemoglobin 12.8 g/dL (12.0-16.0); Mean Corp Hgb Conc. 33.3 g/dL (33.0-37.0); Mean Corpuscular Volume 89.7 fL (81.0-99.0); Platelet Count 245 10^3/uL (130-400); Red Cell Dist. Width 12.9 % (11.5-14.5)
--- NOTE | 2025-02-01 05:24 | PTCARENOTE ---
Caring for pt overnight. aaox3, pleasant. NSR. Remains on 15LMF, desats at times to 86% while sleeping but quickly recovers. Desats during exertion and speaking but not in distress. Purewick in place, unable to exert herself for now d/t resp.
status. IVabx. Denies pain. Will continue to monitor.
[2025-02-01 05:51] LABS: ALT (SGPT) 38 U/L (0-35); AST (SGOT) 37 U/L (14-36); Albumin 3.0 g/dl (3.5-5.0); Alkaline Phosphatase 124 U/L (38-126); Blood Urea Nitrogen 23 mg/dl (7-17); Calcium 8.5 mg/dl (8.4-10.2); Carbon Dioxide 30 mmol/L (22-30); Chloride 101 mmol/L (98-107); Estimated Creatinine Clearance 25 ml/min; Glucose 150 mg/dl (70-99); Potassium 3.7 mmol/L (3.5-5.1); Sodium 133 mmol/L (135-145); Total Protein 5.6 g/dl (6.3-8.2); eGFR 48.03
[2025-02-01 06:31] LABS: Cortisol, Random 17.1 ug/dl
[2025-02-01 07:57] LABS: Glucose - Point of Care 145 mg/dl (70-99)
[2025-02-01] MEDS: NOVOLOG FLEXPEN-LOW RESISTANCE SC (08:11)
[2025-02-01] MEDS: NORVASC 5 MG PO ×2 (09:06→21:34)
[2025-02-01] MEDS: ASPIR LOW (ENTERIC COATED) 81 MG PO (09:07)
[2025-02-01] MEDS: LASIX 40 MG IV ×2 (09:07→16:24)
[2025-02-01] MEDS: APRESOLINE 20 MG PO ×2 (09:07→16:25)
[2025-02-01] MEDS: TENORMIN 25 MG PO (09:07)
--- NOTE | 2025-02-01 11:14 | W.PN.PUL3 ---
Today's Communication / Plan
-
Will continue with diuresis for now with close observation of renal function and electrolytes
Continue antibiotics will complete 5 to 7 days
Incentive spirometry
Follow-up fluid cytology
Wean down FiO2
Incentive spirometry
Will follow repeat echocardiogram
Will follow lower extremity ultrasound
Assessment
-
89-year-old female with previous history of hypertension, CAD, diabetes presenting to ER with lightheadedness, shortness of breath, productive cough and chest pressure for the past 2 days. On arrival to ER, chest x-ray demonstrating bilateral
pleural effusions, she was notably hypoxemic and placed on oxygen at 14 L. Admitted to IMU for high flow nasal cannula for ongoing hypoxemia, and heart failure exacerbation. We are consulted for evaluation.
Acute hypoxic respiratory failure-requiring up to high flow oxygen on admission.
?Acute heart failure exacerbation (pEF)
proBNP 517
Negative troponin
Pulmonary edema on chest x-ray/pleural effusion
Shortness of breath, productive cough, chest pressure
Chest imaging with bilateral pleural effusions and subsegmental atelectasis. On CAT scan of the chest.
Mild leukocytosis
Mild hyponatremia
Hyperglycemia
Mild transaminitis
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
Hypertension
Hyperlipidemia
Coronary artery disease s/p cardiac cath with stent 12/03/2021
Type 2 diabetes
Left knee replacement 2017
Snoring, patient has declined sleep study
Calcified pleural plaques on chest x-ray
Plan
-
Respiratory status remained tenuous.
Initially on high flow oxygen-Down to 14 L mid flow. Patient clinically feels better since admission.
Does not have baseline use at home
she is DNR
-
Prior history of lung disease is noted including possible asbestos exposure
She has pleural plaques on imaging but otherwise was not diagnosed with any other lung conditions in the past
No prior PFTs for review
Suspect patient has heart failure exacerbation with preserved EF given pleural effusion and resultant compressive atelectasis.
CT without IV contrast, obtained indicating pleural effusion, pulmonary edema, difficult to exclude underlying pneumonia.
-
Mild leukocytosis without fevers
Negative procalcitonin
Unclear if this represents infectious etiology
Not unreasonable to complete 5 to 7 days of antibiotics.
-
D-dimer obtained which is elevated but when adjusted for age is unlikely indication for VTE
She has other causes for hypoxemia.
Hold off on further evaluation.
Agree with obtaining lower extremity ultrasound.
If RV is dilated may need to obtain CT angiogram.
-
Status post right thoracentesis 01/31/2025: 650 cc of serosanguineous fluid
pH 7.45/white blood cells 352/94 % mononuclear/glucose 250/total protein 3/LDH 100/amylase 38/triglycerides less than 30.
Possible pseudo exudate after diuresis.
No evidence for infection
Cytology pending
TSH normal
Cortisol normal
Mild transaminitis noted-no previous history of cirrhosis.
-
Prior ECHO results are reviewed indicating stable function, this was recently completed in November
Cardiology consult obtained
Agree with IV diuresis as tolerated
Fluid balance is negative
To repeat echocardiogram-Will follow.
-
Will need outpatient pulmonary evaluation in our office for PFTs and 6MWT
Reviewed with patient
Risk factors assessed for underlying sleep disordered breathing also noted, recommend outpatient PSG/sleep evaluation
She is DNR, I confirmed this on review today
-
Dr. Graham updated daughter at the bedside at length 02/01/2025.
-
We will follow
Diagnostic Data
Chest X-Ray: 01/30/25-Radiographic findings highly suggestive of interstitial pulmonary edema pattern with associated bilateral pleural effusions, likely on the basis of CHF.
04/22/24- 1. No acute pulmonary abnormality appreciated. 2. Calcified pleural plaques bilaterally, consistent with asbestos related pleural disease.
11/17/21- Scattered bilateral calcified densities, appearance compatible with bilateral calcified pleural plaques. Findings would be suggestive of previous asbestos exposure.
CT Scan:
Echo: 11/15/24- 1. Normal left ventricular chamber size myocardial thickness and systolic function. Ejection fraction 60-65%.
2. Mild tricuspid regurgitation with PASP 37 mmgHg.
3. Compared to previous echo from December 2021, findings are similar.
PFT's:
Reports and relevant images were personally reviewed.
Subjective Data
-
Date of Service:
Date of Service: February 01, 2025
Chief Complaint: Pulmonary Follow Up (Acute hypoxemic respiratory failure.)
Review of Systems
Cardiopulmonary: Dyspnea, Cough (n) and Sputum Production (n)
GI: Abdominal Pain (n)
Objective Data
Data Reviewed
Vital Signs / I&O / Oxygen:
Vital Signs
Temp Pulse Resp BP Pulse Ox
98.2 F 80 18 145/57 96
02/01/25 08:00 02/01/25 09:06 02/01/25 06:00 02/01/25 09:06 02/01/25 06:00
Intake and Output
01/31/25 02/01/25 02/02/25
06:59 06:59 06:59
Intake Total 580 / 580
Output Total 400 / 400 2450 / 2450
Balance -400 / -400 -1870 / -1870
SaO2 96
Nasal Cannula flow liters per 55
minute
Physical Exam
General: Comfortable
HEENT: Normocephalic
Cardiovascular: S1-S2
Respiratory: Other (Decreased breath sounds bilaterally)
GI: Soft and Non Distended
Neurology: Awake
Labs/Micro/Reports
Lab Data
02/01/25 05:02
02/01/25 05:02
Microbiology
01/31/25 15:23 Pleural Fluid Body Fluid Culture - Preliminary
No Growth After 18-24 Hours
01/31/25 15:23 Pleural Fluid Gram Stain - Preliminary
01/30/25 17:19 Blood/Venous Blood Culture - Preliminary
No Growth in 24 hours- Final report to follow
01/30/25 17:19 Blood/Venous Blood Culture - Preliminary
No Growth in 24 hours- Final report to follow
01/31/25 15:23 Pleural Fluid Fungal Culture - Preliminary
Culture in progress.
Positive cultures are reported as soon as detected.
Final report to follow in four to five weeks.
01/31/25 00:04 Nose Nasal Screen MRSA (PCR) - Final
MRSA not detected - performed by PCR methodology.
01/30/25 22:39 Urine Legionella Urinary Antigen - Final
Negative for Legionella pneumophila Serogroup 1 antigen.
A negative result does not rule out the possiblity of
Legionella infection due to other serogroups or species of
Legionella. Clinical correlation is recommended.
01/30/25 22:39 Urine Streptococcus pneumoniae Antigen (M - Final
Negative for Streptococcus pneumoniae antigen.
A negative result does not exclude infection with
Streptococcus pneumoniae. Clinical correlation is
recommended.
01/30/25 15:56 Nasal Swab Influenza Types A & B (TAMMIE) - Final
Negative for Influenza A & B, NAAT
Negative results must be combined with clinical observations
and patient history.
Nucleic Acid Amplification test (NAAT)performed on the
[employer] platform.
--- NOTE | 2025-02-01 11:18 | W.PN.CARDCBS ---
Today's Communication / Plan
-
Oxygenation has improved but remains on 9 L
Continue IV Lasix
Continue Zosyn for pneumonia
Updated daughter at bedside
Impression / Plan
-
PCP: Dr. Mary Eason
Cardiology: Dr. Fernandez
Impression:
Admitted with SOB and acute hypoxic respiratory failure 01/30/2025
Acute hypoxic respiratory failure requiring high flow oxygen therapy
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
Possible PNA
Acute HFpEF
Hyponatremia
Elevated LFTs
HTN emergency
h/o HTN
CAD s/p 3.0 mm Promus HERACLIO to the mid LAD 12/03/2021
cRBBB
DM 2
Echo 11/15/2024: EF 60 to 65%, mild TR with PASP 37 mmHg, unchanged compared to echo 12/2021
Plan:
Oxygenation has improved significantly but remains on 9 L
Will continue diuresis with IV Lasix
Also continue Zosyn for pneumonia
Will check echocardiogram
PREADMIT DATA
-Patient came to the emergency room yesterday with SOB and was admitted with acute hypoxic respiratory failure and cardiology is now consulted for possible acute HF. Patient was last seen in cardiology office on 11/08/2024 and at that time was
referred for echo to follow-up on history of CAD and HTN. As noted above patient completed echo on 11/15/2024 and EF was preserved at 60 to 65% and overall echo unchanged compared to echo from 12/2021. Around that same time patient had outpatient
labs that showed hyperkalemia and her PCP stopped her dose of valsartan 80 mg BID mid November. Patient called cardiology office with increasing BP by home readings and her amlodipine was increased to 5 mg BID and response. Patient says SOB
started rather suddenly 3 days ago and was initially BABIN and then resting SOB. Patient was visibly dyspneic and family wanted to bring her to the hospital, but she refused and finally was so out of breath and weak that she asked the family to bring
her to the hospital yesterday and she was noted to be hypoxic. CXR was concerning for possible CHF and patient was given Lasix 40 mg IV x 1 without much subjective improvement and oxygenation continued to worsen. Patient was also started on
antibiotics for possible PNA and again oxygenation continued to worsen. Patient was eventually started on high flow and remains tenuous on high flow now with the possibility of noninvasive ventilation being considered. Patient says that overall
she feels better compared to admission. Patient had chest pressure on the drive from [place] to the hospital yesterday, but no recurrence and troponin levels undetectable.
Progress Note - Powerhouse T[employer]
Subjective
Date of Service: February 01, 2025
She feels better. Oxygenation has improved but remains on 9 L
Objective
Labs:
02/01/25 05:02
02/01/25 05:02
Labs
Hgb 12.8 g/dL (12.0-16.0) 02/01/25 05:02
Hct 38.4 % (37.0-47.0) 02/01/25 05:02
Plt Count 245 10^3/uL (130-400) 02/01/25 05:02
Sodium 133 mmol/L (135-145) L 02/01/25 05:02
Potassium 3.7 mmol/L (3.5-5.1) 02/01/25 05:02
BUN 23 mg/dl (7-17) H 02/01/25 05:02
Creatinine 1.1 mg/dL (0.6-1.0) H 02/01/25 05:02
Glucose 150 mg/dl (70-99) H 02/01/25 05:02
Troponins
01/30/25 01/30/25 01/31/25
14:44 18:46 00:25
Troponin I 0.013 0.017 D 0.022 D
01/31/25 01/31/25 01/31/25
05:38 12:30 18:30
Troponin I 0.023 Cancelled Cancelled
Vital Signs and I&O:
Vital Signs
Temp Pulse Resp BP Pulse Ox
98.2 F 80 18 145/57 96
02/01/25 08:00 02/01/25 09:06 02/01/25 06:00 02/01/25 09:06 02/01/25 06:00
Vital Signs
Temp Pulse Resp BP Pulse Ox
98.2 F 80 18 145/57 96
02/01/25 08:00 02/01/25 09:06 02/01/25 06:00 02/01/25 09:06 02/01/25 06:00
Intake & Output
01/30/25 01/31/25 02/01/25 02/02/25
06:59 06:59 06:59 06:59
Intake Total 580 / 580
Output Total 400 / 400 2450 / 2450
Balance -400 / -400 -1870 / -1870
Physical Exam
Physical Exam
General: Well developed, well nourished in NAD.
Neck: Supple, no JVD, HJR, carotids +2 B/L, no bruits bilaterally.
Heart: Non displaced PMI, RRR, no murmurs, No S3, S4, no rubs.
Lungs: Scattered rhonchi
Extremities: No clubbing, cyanosis or edema bilaterally.
Neuro: Grossly nonfocal, awake, alert and oriented x3.
[2025-02-01] MEDS: NOVOLOG FLEXPEN-LOW RESISTANCE 2 UNITS SC (13:22)
[2025-02-01 13:30] LABS: Glucose - Point of Care 246 mg/dl (70-99)
--- NOTE | 2025-02-01 14:27 | PTCARENOTE ---
Assumed care of patient at beginning of this shift from previous RN with 15L midflow in use. POx 91-96%, however she will desat to the high 80s with movement or talking. Patient incontinent of several loose bms; purewick removed. Stool heme
positive. Dr Morales notified via TT; stool specimens ordered and sent. Patient with productive cough of thick white sputum; specimen sent as ordered. US B/LLE completed at bedside. Family was at bedside today. See worklist for full assessment and
vital signs; see MAR for med administration.
--- NOTE | 2025-02-01 14:53 | W.PN.HOSP.TC ---
Today's Communication/Plan
-
continue finite antibiotic course
continue IV Lasix
arrange L thoracentesis
wean O2
PT/OT
await Echo results
d/w Daughter
Assessment / Plan
Assessment / Plan
Assessment:
Acute hypoxic respiratory failure in setting of acute HFpEF
- s/p Hi-Flow, now on 15L NC
- CXR: interstitial pulmonary edema pattern with associated bilateral pleural effusions. BNP 517.
- CT chest: Moderate bilateral pleural effusions with adjacent atelectasis. There is mild interlobular septal thickening suggestive of mild congestion. There are superimposed small nodular opacities predominantly within the right mid and upper lung
which measure up to 5 mm there are suggestive of an infectious/inflammatory process.
- D. Dimer age adjusted to near normal. doubt VTE with negative Doppler
- s/p R thoracentesis 01/31: 650 cc removed. transudative vs pseudo-exudative
- pursue L thoracentesis; IR contacted
- continue IV Lasix; requires intensive monitoring of I/Os, weights, lytes
- Echo: pending
- Cards and Pulmonary following
Possible pneumonia
- CT chest suggestive of infectious process
- continue Zosyn + Azithromycin x 5-7 days
Mild transaminitis
- trend
- no RUQ pain
acute Hyponatremia in setting of acute CHF
- follow BMP
Acute hyperkalemia
- resolved
Essential HTN
- continue CC/BB/hydralazine
HLD - statin
CAD s/p stent 2021
- continue ASA/Statin
Type 2 Diabetes Mellitus
- holding Metformin/Glipizide
- SSI
- A1c: 7.0%
Chronic pleural plaques
- Hx of Asbestos exposure
DVT ppx: Lovenox
Code: DNR/DNI, confirmed with patient
Plan d/w Daughter Tatiana
Anticipated Discharge: > 48 hours
Subjective/Interval History
-
Date of Service: February 01, 2025
reports less SOB, now down to 15L NC
no chest pain
Objective Data
-
Labs:
Laboratory Results
02/01/25
05:02
WBC 11.7 H
Hgb 12.8
Hct 38.4
Plt Count 245
Sodium 133 L
Potassium 3.7
Chloride 101
Carbon Dioxide 30
BUN 23 H
Creatinine 1.1 H
Glucose 150 H
Calcium 8.5
Total Bilirubin 0.7
AST 37 H
ALT 38 H
Alkaline Phosphatase 124
Vital Signs:
Vital Signs
Temp Pulse Resp BP Pulse Ox
98.2 F 73 13 126/55 94
02/01/25 12:00 02/01/25 14:00 02/01/25 14:00 02/01/25 14:00 02/01/25 12:03
I&O
01/31/25 02/01/25 02/02/25
06:59 06:59 06:59
Intake Total 580 / 580
Output Total 400 / 400 2450 / 2450
Balance -400 / -400 -1870 / -1870
Physical Exam
-
General: No Apparent Distress
HEENT: Normocephalic and Atraumatic
Respiratory: Decreased Breath Sounds (Left side); Negative Wheezes
Cardiac: Regular Rhythm and S1/S2
GI: Soft
Musculoskeletal: No Edema
Neuro: AO x 3
Psych: Calm
Data Reviewed
-
Total Time Spent with Patient (in minutes): 51
Labs: Labs Reviewed by me
--- NOTE | 2025-02-01 15:38 | CM ---
F/U: WILLARD Fried spoke to Hospitalist who said that the patient was on HFNC and now on 15 Liters so Hospitalist wants to see how the next 2 days go. Patient might need home O2 IF SHE can get down to a lower liter flow from having thoracentesis x2.
PT/OT is in the room now evaluating patient so will see if she needs SNF. Case Management to follow. PLAN: Home PT and/or O2 vs. SNF.
[2025-02-01] MEDS: NOVOLOG FLEXPEN-LOW RESISTANCE 1 UNITS SC (16:23)
[2025-02-01] MEDS: ZITHROMAX 250 MG PO (16:24)
[2025-02-01 16:33] LABS: Glucose - Point of Care 179 mg/dl (70-99)
[2025-02-01] MEDS: LIPITOR 40 MG PO (17:50)
[2025-02-01] MEDS: LOVENOX 30 MG SC (17:50)
[2025-02-01 22:29] LABS: Glucose - Point of Care 171 mg/dl (70-99)
[2025-02-01] MEDS: APRESOLINE PO ×2 (23:25→23:44)
[2025-02-02] VITALS (17 sets, daily range): BP systolic 72–153; BP diastolic 42–105; BMI 23.4
[2025-02-02] MEDS: AYR SALINE NASAL GEL 1 APPLIC NASAL ×2 (01:15→06:34)
--- NOTE | 2025-02-02 04:21 | PTCARENOTE ---
Assumed care for patient overnight. Pt AAOx3, [employer]. B/l hearing aids charging. Pt on 15L MFNC, SpO2 94%. With ambulation pt sat 89% w/ dyspnea. Pt had some bloody sputum. Pt states feeling congested. AYR gel ordered and applied to nose, see MAR. NSR
on the monitor. Pt ambulated to the [facility] w/ assistance of 1. Pt utilizing bedpan as she has frequency. Shelley care done. Pt able to make needs known, call spicer within reach.
[2025-02-02] MEDS: ZOSYN 50 IV ×4 (05:16→23:55)
[2025-02-02 05:49] LABS: Hematocrit 36.4 % (37.0-47.0); Hemoglobin 12.2 g/dL (12.0-16.0); Mean Corp Hgb Conc. 33.5 g/dL (33.0-37.0); Mean Corpuscular Volume 87.5 fL (81.0-99.0); Platelet Count 249 10^3/uL (130-400); Red Cell Dist. Width 12.7 % (11.5-14.5)
[2025-02-02 06:22] LABS: ALT (SGPT) 57 U/L (0-35); AST (SGOT) 57 U/L (14-36); Albumin 3.1 g/dl (3.5-5.0); Alkaline Phosphatase 137 U/L (38-126); Blood Urea Nitrogen 26 mg/dl (7-17); Calcium 8.7 mg/dl (8.4-10.2); Carbon Dioxide 29 mmol/L (22-30); Chloride 98 mmol/L (98-107); Estimated Creatinine Clearance 25 ml/min; Glucose 143 mg/dl (70-99); Potassium 3.3 mmol/L (3.5-5.1); Sodium 132 mmol/L (135-145); Total Protein 5.7 g/dl (6.3-8.2); eGFR 48.03
[2025-02-02 07:36] LABS: Glucose - Point of Care 147 mg/dl (70-99)
[2025-02-02] MEDS: APRESOLINE 20 MG PO ×3 (08:16→20:58)
[2025-02-02] MEDS: ZITHROMAX 250 MG PO (08:16)
[2025-02-02] MEDS: TENORMIN 25 MG PO (08:16)
[2025-02-02] MEDS: ASPIR LOW (ENTERIC COATED) 81 MG PO (08:16)
[2025-02-02] MEDS: LASIX 40 MG IV ×2 (08:17→17:12)
[2025-02-02] MEDS: NORVASC 5 MG PO ×2 (08:17→20:58)
[2025-02-02] MEDS: NOVOLOG FLEXPEN-LOW RESISTANCE SC (08:17)
--- NOTE | 2025-02-02 09:13 | W.PN.PUL3 ---
Addendum entered and electronically signed by Freddie Keenan MD 02/02/25 09:26:
Patient is going for contralateral therapeutic thoracentesis today. Hopefully will improve oxygenation.
Original Note:
Today's Communication / Plan
-
Continue diuresis per cardiology discretion
Follow renal function and electrolytes
Continue antibiotic for now.
Incentive spirometry
Wean down FiO2 down to 10 L today.
Follow-up pleural fluid cytology
Will obtain CRP and sedimentation rate.
Assessment
-
89-year-old female with previous history of hypertension, CAD, diabetes presenting to ER with lightheadedness, shortness of breath, productive cough and chest pressure for the past 2 days. On arrival to ER, chest x-ray demonstrating bilateral
pleural effusions, she was notably hypoxemic and placed on oxygen at 14 L. Admitted to IMU for high flow nasal cannula for ongoing hypoxemia, and heart failure exacerbation. We are consulted for evaluation.
Acute hypoxic respiratory failure-requiring up to high flow oxygen on admission.
?Acute heart failure exacerbation (pEF)
proBNP 517
Negative troponin
Pulmonary edema on chest x-ray/pleural effusion
Shortness of breath, productive cough, chest pressure
Chest imaging with bilateral pleural effusions and subsegmental atelectasis. On CAT scan of the chest.
Mild leukocytosis
Mild hyponatremia
Hyperglycemia
Mild transaminitis
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
Hypertension
Hyperlipidemia
Coronary artery disease s/p cardiac cath with stent 12/03/2021
Type 2 diabetes
Left knee replacement 2017
Snoring, patient has declined sleep study
Calcified pleural plaques on chest x-ray
Plan
-
Respiratory status remained tenuous.
Patient feels clinically improved this morning-currently on 10-12 L. 96%-while eating breakfast.
Lung exam without bronchospasm.
Does not have baseline use at home
she is DNR
-
Prior history of lung disease is noted including possible asbestos exposure
She has pleural plaques on imaging but otherwise was not diagnosed with any other lung conditions in the past
No prior PFTs for review
-
Clinical picture not entirely clear: Being diuresed given? Pulmonary edema on imaging and bilateral pleural effusion with moderately increased proBNP.
Repeat echocardiogram with preserved LVEF. No significant valvular abnormalities. Moderate to severe pulmonary hypertension with normal RV function.
-
Certainly infectious etiology such as pneumonia is a possibility with bilateral pleural effusions.
CT without IV contrast, obtained indicating pleural effusion, pulmonary edema, difficult to exclude underlying pneumonia.
-
Mild leukocytosis without fevers.
Negative procalcitonin
-negative influenza/negative COVID/negative streptococcal and Legionella antigens in urine.
Not unreasonable to complete 5 to 7 days of antibiotics. Continue Zosyn/azithromycin for now.
All cultures negative so far.
-
D-dimer obtained which is elevated but when adjusted for age is unlikely indication for VTE
She has other causes for hypoxemia.
Hold off on further evaluation.
Lower extremity ultrasounds negative for DVT.
Echocardiogram with normal RV function but pulmonary hypertension.
Pulmonary hypertension could be explained by her hypoxemia.
If there is no ongoing improvement we will need to consider CT angiogram-patient is at risk for contrast-induced nephropathy.
-
Status post right thoracentesis 01/31/2025: 650 cc of serosanguineous fluid
pH 7.45/white blood cells 352/94 % mononuclear/glucose 250/total protein 3/LDH 100/amylase 38/triglycerides less than 30.
Possible pseudo exudate after diuresis.
No evidence for infection
Cytology pending
TSH normal
Cortisol normal
Mild transaminitis noted-no previous history of cirrhosis--> benign abdominal exam.
Will obtain CRP and sedimentation rate. If significantly elevated can consider connective tissue disease associated serositis.
-
Prior ECHO results are reviewed indicating stable function, this was recently completed in November
Cardiology --> case discussed. Uncertain how much more diuresis patient will tolerate.
Agree with IV diuresis as tolerated-so far creatinine holding.
Weight trending lower.
-
Will need outpatient pulmonary evaluation in our office for PFTs and 6MWT
Reviewed with patient
Risk factors assessed for underlying sleep disordered breathing also noted, recommend outpatient PSG/sleep evaluation
She is DNR.
-
Dr. Graham updated daughter at the bedside at length 02/01/2025.
-
We will follow
Diagnostic Data
Chest X-Ray: 01/30/25-Radiographic findings highly suggestive of interstitial pulmonary edema pattern with associated bilateral pleural effusions, likely on the basis of CHF.
04/22/24- . No acute pulmonary abnormality appreciated. 2. Calcified pleural plaques bilaterally, consistent with asbestos related pleural disease.
11/17/21- Scattered bilateral calcified densities, appearance compatible with bilateral calcified pleural plaques. Findings would be suggestive of previous asbestos exposure.
CT Scan:
Echo: 11/15/24- 1. Normal left ventricular chamber size myocardial thickness and systolic function. Ejection fraction 60-65%.
2. Mild tricuspid regurgitation with PASP 37 mmgHg.
3. Compared to previous echo from December 2021, findings are similar.
PFT's:
Reports and relevant images were personally reviewed.
Subjective Data
-
Date of Service:
Date of Service: February 02, 2025
Chief Complaint: Pulmonary Follow Up (Acute hypoxemic respiratory failure.)
Subjective:
Patient reports that she feels better this morning.
Denies increased cough or phlegm production.
She is eating breakfast independently.
Review of Systems
General: Fever (n)
Cardiopulmonary: Dyspnea (improved), Cough and Sputum Production (minimal)
GI: Abdominal Pain (n) and Nausea (n)
Objective Data
Data Reviewed
Vital Signs / I&O / Oxygen:
Vital Signs
Temp Pulse Resp BP Pulse Ox
98.3 F 84 14 139/50 94
02/02/25 07:00 02/02/25 06:00 02/02/25 06:00 02/02/25 08:16 02/02/25 04:19
Intake and Output
02/01/25 02/02/25 02/03/25
06:59 06:59 06:59
Intake Total 580 / 580 100 / 100
Output Total 2450 / 2450
Balance -1870 / -1870 100 / 100
SaO2 94
Nasal Cannula flow liters per 55
minute
Physical Exam
General: Comfortable
HEENT: Normocephalic
Cardiovascular: S1-S2
Respiratory: Wheeze (n) and Other (Decreased breath sounds bilaterally)
GI: Soft and Non Distended
Neurology: Awake, Alert, Oriented and AO x 3
Skin: Warm
Labs/Micro/Reports
Lab Data
02/02/25 05:37
02/02/25 05:37
Microbiology
01/30/25 17:19 Blood/Venous Blood Culture - Preliminary
No Growth in 48 hours- Final report to follow
01/30/25 17:19 Blood/Venous Blood Culture - Preliminary
No Growth in 48 hours- Final report to follow
02/01/25 10:44 Sputum Gram Stain - Preliminary
02/01/25 10:44 Feces/Stool C. difficile GDH Antigen & Toxins - Final
Negative for toxigenic C.difficile
02/01/25 10:44 Feces/Stool Norovirus (PCR) - Final
Negative for Norovirus GI and GII.
01/31/25 15:23 Pleural Fluid Body Fluid Culture - Preliminary
No Growth After 18-24 Hours
01/31/25 15:23 Pleural Fluid Gram Stain - Preliminary
01/31/25 15:23 Pleural Fluid Fungal Culture - Preliminary
Culture in progress.
Positive cultures are reported as soon as detected.
Final report to follow in four to five weeks.
01/31/25 00:04 Nose Nasal Screen MRSA (PCR) - Final
MRSA not detected - performed by PCR methodology.
01/30/25 22:39 Urine Legionella Urinary Antigen - Final
Negative for Legionella pneumophila Serogroup 1 antigen.
A negative result does not rule out the possiblity of
Legionella infection due to other serogroups or species of
Legionella. Clinical correlation is recommended.
01/30/25 22:39 Urine Streptococcus pneumoniae Antigen (M - Final
Negative for Streptococcus pneumoniae antigen.
A negative result does not exclude infection with
Streptococcus pneumoniae. Clinical correlation is
recommended.
01/30/25 15:56 Nasal Swab Influenza Types A & B (TAMMIE) - Final
Negative for Influenza A & B, NAAT
Negative results must be combined with clinical observations
and patient history.
Nucleic Acid Amplification test (NAAT)performed on the
[employer] platform.
--- NOTE | 2025-02-02 09:33 | W.PN.CARDCBS ---
Today's Communication / Plan
-
Cont IV lasix
Follow Cr/K
Wean O2 as able
Impression / Plan
-
PCP: Dr. Mary Eason
Cardiology: Dr. Fernandez
Impression:
Admitted with SOB and acute hypoxic respiratory failure 01/30/2025
Acute hypoxic respiratory failure requiring high flow oxygen therapy
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
Possible PNA
Acute HFpEF
Hyponatremia
Elevated LFTs
HTN emergency
h/o HTN
CAD s/p 3.0 mm Promus HERACLIO to the mid LAD 12/03/2021
cRBBB
DM 2
Echo 11/15/2024: EF 60 to 65%, mild TR with PASP 37 mmHg, unchanged compared to echo 12/2021
Plan:
Subjective improved following R thoracentesis. Tentative plan for L thoracentesis.
Remains hypoxic requiring 15L supplemental O2
Continue diuresis with IV Lasix
Follow Cr/lytes and supplemental K as needed
Avoid MRA and SGLT2 with reduced CrCl
Echo here with NL LV function and no high grade valve dz
Treatment of PNA per primary team
PREADMIT DATA
-Patient came to the emergency room yesterday with SOB and was admitted with acute hypoxic respiratory failure and cardiology is now consulted for possible acute HF. Patient was last seen in cardiology office on 11/08/2024 and at that time was
referred for echo to follow-up on history of CAD and HTN. As noted above patient completed echo on 11/15/2024 and EF was preserved at 60 to 65% and overall echo unchanged compared to echo from 12/2021. Around that same time patient had outpatient
labs that showed hyperkalemia and her PCP stopped her dose of valsartan 80 mg BID mid November. Patient called cardiology office with increasing BP by home readings and her amlodipine was increased to 5 mg BID and response. Patient says SOB
started rather suddenly 3 days ago and was initially BABIN and then resting SOB. Patient was visibly dyspneic and family wanted to bring her to the hospital, but she refused and finally was so out of breath and weak that she asked the family to bring
her to the hospital yesterday and she was noted to be hypoxic. CXR was concerning for possible CHF and patient was given Lasix 40 mg IV x 1 without much subjective improvement and oxygenation continued to worsen. Patient was also started on
antibiotics for possible PNA and again oxygenation continued to worsen. Patient was eventually started on high flow and remains tenuous on high flow now with the possibility of noninvasive ventilation being considered. Patient says that overall
she feels better compared to admission. Patient had chest pressure on the drive from [place] to the hospital yesterday, but no recurrence and troponin levels undetectable.
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
Subjective
Date of Service: February 02, 2025
NAOE. Tells me breathing has improved following thoracentesis, but still requiring midflow O2 in IMU.
Objective
Labs:
02/02/25 05:37
02/02/25 05:37
Labs
Hgb 12.2 g/dL (12.0-16.0) 02/02/25 05:37
Hct 36.4 % (37.0-47.0) L 02/02/25 05:37
Plt Count 249 10^3/uL (130-400) 02/02/25 05:37
Sodium 132 mmol/L (135-145) L 02/02/25 05:37
Potassium 3.3 mmol/L (3.5-5.1) L 02/02/25 05:37
BUN 26 mg/dl (7-17) H 02/02/25 05:37
Creatinine 1.1 mg/dL (0.6-1.0) H 02/02/25 05:37
Glucose 143 mg/dl (70-99) H 02/02/25 05:37
Troponins
01/30/25 01/30/25 01/31/25
14:44 18:46 00:25
Troponin I 0.013 0.017 D 0.022 D
01/31/25 01/31/25 01/31/25
05:38 12:30 18:30
Troponin I 0.023 Cancelled Cancelled
Vital Signs and I&O:
Vital Signs
Temp Pulse Resp BP Pulse Ox
98.3 F 84 14 139/50 94
02/02/25 07:00 02/02/25 06:00 02/02/25 06:00 02/02/25 08:16 02/02/25 04:19
Vital Signs
Temp Pulse Resp BP Pulse Ox
98.3 F 84 14 139/50 94
02/02/25 07:00 02/02/25 06:00 02/02/25 06:00 02/02/25 08:16 02/02/25 04:19
Intake & Output
01/31/25 02/01/25 02/02/25 02/03/25
06:59 06:59 06:59 06:59
Intake Total 580 / 580 100 / 100
Output Total 400 / 400 2450 / 2450
Balance -400 / -400 -1870 / -1870 100 / 100
Physical Exam
Physical Exam
Gen: NAD, AAOx3
HEENT: NC/AT, sclera anicteric
Neck: No JVD
CV: RRR, NL s1/s2
Lungs: Decreased BS at bases b/l on 15L O2 via NC
Abd: S/ND
Ext: No LE edema
Skin: Warm, dry
Neuro: Non-focal
[2025-02-02] MEDS: KCL 40 MEQ PO (09:34)
[2025-02-02 10:22] LABS: C-Reactive Protein 61.10 mg/L (0.0-10.00)
[2025-02-02] MEDS: NOVOLOG FLEXPEN-LOW RESISTANCE 4 UNITS SC (11:38)
[2025-02-02 11:46] LABS: Glucose - Point of Care 320 mg/dl (70-99)
[2025-02-02 12:07] LABS: Body Fluid Second Tech EM
--- NOTE | 2025-02-02 15:37 | W.PN.HOSP.TC ---
Today's Communication/Plan
-
continue IV Lasix
continue IV abx
wean O2
encourage IS
Assessment / Plan
Assessment / Plan
Assessment:
Acute hypoxic respiratory failure in setting of acute HFpEF
- s/p Hi-Flow, now on 15L NC; wean O2 as able
- CXR: interstitial pulmonary edema pattern with associated bilateral pleural effusions. BNP 517.
- CT chest: Moderate bilateral pleural effusions with adjacent atelectasis. There is mild interlobular septal thickening suggestive of mild congestion. There are superimposed small nodular opacities predominantly within the right mid and upper lung
which measure up to 5 mm there are suggestive of an infectious/inflammatory process.
- D. Dimer age adjusted to near normal. doubt VTE with negative Doppler and no RV strain on Echo
- s/p R thoracentesis 01/31: 650 cc removed. transudative vs pseudo-exudative
- s/p L thoracentesis 02/02: 800 cc removed.
- continue IV Lasix; requires intensive monitoring of I/Os, weights, lytes
- Echo: EF 60-65%, normal LV size/function.
- Cards and Pulmonary following
Possible pneumonia
- CT chest suggestive of infectious process
- continue Zosyn + Azithromycin x 5-7 days
Mild transaminitis
- trend
- no RUQ pain
acute Hyponatremia in setting of acute CHF
- follow BMP
Acute hyperkalemia
- resolved
Essential HTN
- continue CC/BB/hydralazine
HLD - statin
CAD s/p stent 2021
- continue ASA/Statin
Type 2 Diabetes Mellitus
- holding Metformin/Glipizide
- SSI
- A1c: 7.0%
Chronic pleural plaques
- Hx of Asbestos exposure
Hypokalemia - replete prn
DVT ppx: Lovenox
Code: DNR/DNI, confirmed with patient
Plan d/w Daughter Tatiana
Anticipated Discharge: > 48 hours
Subjective/Interval History
-
Date of Service: February 02, 2025
s/p L thoracentesis 800 cc removed
reports some loose stools and nausea in setting of IV abx. no abd pain and able to keep meals down
remains on 15L NC
Objective Data
-
Labs:
Laboratory Results
02/02/25
05:37
WBC 12.2 H
Hgb 12.2
Hct 36.4 L
Plt Count 249
Sodium 132 L
Potassium 3.3 L
Chloride 98
Carbon Dioxide 29
BUN 26 H
Creatinine 1.1 H
Glucose 143 H
Calcium 8.7
Total Bilirubin 0.7
AST 57 H
ALT 57 H
Alkaline Phosphatase 137 H
Vital Signs:
Vital Signs
Temp Pulse Resp BP Pulse Ox
97.7 F 67 25 129/57 99
02/02/25 11:34 02/02/25 14:00 02/02/25 14:00 02/02/25 14:00 02/02/25 14:00
I&O
02/01/25 02/02/25 02/03/25
06:59 06:59 06:59
Intake Total 580 / 580 100 / 100
Output Total 2450 / 2450
Balance -1870 / -1870 100 / 100
Physical Exam
-
General: No Apparent Distress
HEENT: Normocephalic and Atraumatic
Respiratory: Negative Wheezes
Cardiac: Regular Rhythm and S1/S2
GI: Soft and Nontender
Musculoskeletal: No Edema
Neuro: AO x 3
Psych: Calm
Data Reviewed
-
Total Time Spent with Patient (in minutes): 51
Labs: Labs Reviewed by me
--- NOTE | 2025-02-02 15:43 | PTCARENOTE ---
Assumed care of patient at beginning of this shift from previous RN with O2 15L midflow in use. POx 94-95%; dips to 91% with activity. Patient went to [facility] for thoracentesis; able to wean to 12L with current POx 97-99%. Will continue to wean.
Patient c/o dryness in her nose; occasional blood tinged when blowing her nose and blood tinged sputum. Dr Morales ordered saline nasal spray. See worklist for full assessment and vital signs.
--- NOTE | 2025-02-02 16:34 | CM ---
F/U: Hospitalist said that patient still on 15 liters so has to wean down more. Case Management will follow up. PLAN: SNF when ready w/ O2 vs. Home w/ O2.
[2025-02-02 16:38] LABS: Glucose - Point of Care 184 mg/dl (70-99)
[2025-02-02] MEDS: LIPITOR 40 MG PO (17:12)
[2025-02-02] MEDS: NOVOLOG FLEXPEN-LOW RESISTANCE 1 UNITS SC (17:12)
[2025-02-02] MEDS: LOVENOX 30 MG SC (17:13)
--- NOTE | 2025-02-02 17:47 | PTCARENOTE ---
Addendum entered by Jacqui Zabala RN 02/02/25 19:04:
Sodium 128; Dr Morales made aware via TT. Patient currently eating dinner.
Addendum entered by Jacqui Zabala RN 02/02/25 18:24:
Morphine given; patient reports pain 'seems a little bit better.' She is able to use commode. Per TT from Dr Morales, he would like patient to lay on her R side so that her L side is up.
Original Note:
Patient c/o sharp pain under L breast and L back at thoracentesis site, described as a 'knife.' She denied it increases with breathing. POx 99% on 10L. EKG completed as per protocol. Dr Morales notified via TT. Patient tearful/crying and holding her
side. She states pain is constant at an 8/10 but intensity increases intermittently. Dr Morales up to bedside. CXR and labs ordered; all completed. BP 121/59, HR 83.
[2025-02-02 17:53] LABS: Hematocrit 36.2 % (37.0-47.0); Hemoglobin 12.4 g/dL (12.0-16.0); Mean Corp Hgb Conc. 34.3 g/dL (33.0-37.0); Mean Corpuscular Volume 86.0 fL (81.0-99.0); Platelet Count 250 10^3/uL (130-400); Red Cell Dist. Width 12.4 % (11.5-14.5)
[2025-02-02 18:16] LABS: Troponin I 0.021 ng/ml
[2025-02-02] MEDS: MORPHINE SULFATE 1 MG IV (18:16)
[2025-02-02 18:20] LABS: Blood Urea Nitrogen 29 mg/dl (7-17); Calcium 8.7 mg/dl (8.4-10.2); Carbon Dioxide 29 mmol/L (22-30); Chloride 93 mmol/L (98-107); Estimated Creatinine Clearance 23 ml/min; Glucose 185 mg/dl (70-99); Potassium 3.8 mmol/L (3.5-5.1); Sodium 128 mmol/L (135-145); eGFR 43.27
[2025-02-02] MEDS: TYLENOL PO (22:14)
[2025-02-02] MEDS: IMODIUM PO (22:14)
[2025-02-02] MEDS: OCEAN, SALINE MIST 2 SPRAYS NASAL (22:21)
[2025-02-02] MEDS: TYLENOL 650 MG PO (22:51)
[2025-02-02] MEDS: IMODIUM 2 MG PO (22:51)
[2025-02-03] VITALS (16 sets, daily range): BP systolic 109–158; BP diastolic 43–98; O2SAT 99; BMI 23.1
[2025-02-03] MEDS: TYLENOL 650 MG PO ×2 (04:35→09:45)
[2025-02-03] MEDS: OCEAN, SALINE MIST 2 SPRAYS NASAL (04:36)
[2025-02-03 04:59] LABS: Hematocrit 34.5 % (37.0-47.0); Hemoglobin 11.6 g/dL (12.0-16.0); Mean Corp Hgb Conc. 33.6 g/dL (33.0-37.0); Mean Corpuscular Volume 87.3 fL (81.0-99.0); Platelet Count 249 10^3/uL (130-400); Red Cell Dist. Width 12.6 % (11.5-14.5)
--- NOTE | 2025-02-03 04:59 | W.PN.UPDATE ---
Update Note
Progress Note Update
~ 22:15 At the TT request of Dr. Morales, asked to evaluate Saloni Stevenson, vital signs, O2 use, pain level and if morphine helped.
~ 5 Saw 3352 Saloni Stevenson, very sweet lady. States her pain is zero when just sitting, rates at 4 out of 10 with deep breath or movement. She also states that when she pinches her skin under her breast, she has no pain at all even with breathing
or moving. States her pain starts under her rib cage and radiates to her mid back (points to left flank area). Lungs are clear. No CVA tenderness. Vital signs stable, 93% on 8L NC, afebrile. Breathing unlabored. Said the morphine only helped a
little. She is going to take tylenol for now.
--- NOTE | 2025-02-03 05:08 | PTCARENOTE ---
Assumed care for patient overnight. Pt AAOx3, [place], very pleasant. Weaned to 8L MFNC, SpO2 98%. Pt ambulating to the bathroom with assistance and a R.W. Pt slightly dyspneic w/ exertion. Pt c/o dryness in her nose and occasional blood tinged sputum.
PRN Saline spray administered w/ improvement. Pt c/o mild pain to L side and back s/p thoracentesis, PRN Tylenol administered w/ improvement. Pt able to make needs known, call spicer within reach.
[2025-02-03] MEDS: ZOSYN 50 IV ×4 (05:19→23:41)
[2025-02-03 05:21] LABS: Blood Urea Nitrogen 31 mg/dl (7-17); Calcium 8.9 mg/dl (8.4-10.2); Carbon Dioxide 32 mmol/L (22-30); Chloride 95 mmol/L (98-107); Estimated Creatinine Clearance 21 ml/min; Glucose 159 mg/dl (70-99); Potassium 3.5 mmol/L (3.5-5.1); Sodium 131 mmol/L (135-145); eGFR 39.31
[2025-02-03 08:32] LABS: Glucose - Point of Care 155 mg/dl (70-99)
--- NOTE | 2025-02-03 09:29 | W.PN.CARDCBS ---
Today's Communication / Plan
-
Oral furosemide 40 mg a day
Add Farxiga 10 mg daily
Supplement potassium
Consider spironolactone
Discharge planning
Impression / Plan
-
PCP: Dr. Mary Eason
Cardiology: Dr. Fernandez
Impression:
Admitted with SOB and acute hypoxic respiratory failure 01/30/2025
Acute hypoxic respiratory failure requiring high flow oxygen therapy
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
Possible PNA
Acute HFpEF
Hyponatremia
Elevated LFTs
HTN emergency
h/o HTN
CAD s/p 3.0 mm Promus HERACLIO to the mid LAD 12/03/2021
cRBBB
DM 2
Echo 11/15/2024: EF 60 to 65%, mild TR with PASP 37 mmHg, unchanged compared to echo 12/2021
Plan:
She feels much better following thoracentesis for 850 mL on the left.
Saturations presently are 100% on 6 L.
She is currently receiving physical therapy.
Given CKD, SGLT 2 antagonist could be beneficial for this and HFpEF. Will ask case management to [place]. Will need to check and see if she has history of UTIs.
Consider spironolactone
Will switch to oral furosemide.
Discharge planning.
Treatment of PNA per primary team
PREADMIT DATA
-Patient came to the emergency room yesterday with SOB and was admitted with acute hypoxic respiratory failure and cardiology is now consulted for possible acute HF. Patient was last seen in cardiology office on 11/08/2024 and at that time was
referred for echo to follow-up on history of CAD and HTN. As noted above patient completed echo on 11/15/2024 and EF was preserved at 60 to 65% and overall echo unchanged compared to echo from 12/2021. Around that same time patient had outpatient
labs that showed hyperkalemia and her PCP stopped her dose of valsartan 80 mg BID mid November. Patient called cardiology office with increasing BP by home readings and her amlodipine was increased to 5 mg BID and response. Patient says SOB
started rather suddenly 3 days ago and was initially BABIN and then resting SOB. Patient was visibly dyspneic and family wanted to bring her to the hospital, but she refused and finally was so out of breath and weak that she asked the family to bring
her to the hospital yesterday and she was noted to be hypoxic. CXR was concerning for possible CHF and patient was given Lasix 40 mg IV x 1 without much subjective improvement and oxygenation continued to worsen. Patient was also started on
antibiotics for possible PNA and again oxygenation continued to worsen. Patient was eventually started on high flow and remains tenuous on high flow now with the possibility of noninvasive ventilation being considered. Patient says that overall
she feels better compared to admission. Patient had chest pressure on the drive from [place] to the hospital yesterday, but no recurrence and troponin levels undetectable.
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
Subjective
Date of Service: February 03, 2025:
89-year-old woman admitted with acute HFpEF.
PMH: CAD, PCI, right bundle branch block, hypertension, hyperlipidemia, diabetes
Current meds: Amlodipine 5 twice daily, aspirin 81 mg a day, atorvastatin 40 mg a day, atenolol 25 mg a day, hydralazine 20 mg 3 times daily, furosemide 40 mg IV twice daily, piperacillin, Lovenox, azithromycin
110/75, pulse 74, weight is 53.7 kg, was 58.7 kg on admission, was not on diuretic as outpatient
Hemoglobin 11.6, white count 11.4, sodium 131, potassium 3.5, creatinine 1.3, Troponin 0.21
ECG sinus rhythm right bundle branch block
Objective
Labs:
02/03/25 04:37
02/03/25 04:37
Labs
Hgb 11.6 g/dL (12.0-16.0) L 02/03/25 04:37
Hct 34.5 % (37.0-47.0) L 02/03/25 04:37
Plt Count 249 10^3/uL (130-400) 02/03/25 04:37
Sodium 131 mmol/L (135-145) L 02/03/25 04:37
Potassium 3.5 mmol/L (3.5-5.1) 02/03/25 04:37
BUN 31 mg/dl (7-17) H 02/03/25 04:37
Creatinine 1.3 mg/dL (0.6-1.0) H 02/03/25 04:37
Glucose 159 mg/dl (70-99) H 02/03/25 04:37
Troponins
02/02/25
17:41
Troponin I 0.021
Vital Signs and I&O:
Vital Signs
Temp Pulse Resp BP Pulse Ox
36.5 C 63 21 109/46 98
02/03/25 07:23 02/03/25 06:00 02/03/25 06:00 02/03/25 06:00 02/03/25 06:00
Vital Signs
Temp Pulse Resp BP Pulse Ox
36.5 C 63 21 109/46 98
02/03/25 07:23 02/03/25 06:00 02/03/25 06:00 02/03/25 06:00 02/03/25 06:00
Intake & Output
02/01/25 02/02/25 02/03/25 02/04/25
07:59 07:59 07:59 07:59
Intake Total 580 / 580 100 / 100
Output Total 2450 / 2450
Balance -1870 / -1870 100 / 100
Physical Exam
Physical Exam
See above
[2025-02-03] MEDS: NOVOLOG FLEXPEN-LOW RESISTANCE 1 UNITS SC (09:40)
[2025-02-03] MEDS: APRESOLINE 20 MG PO ×3 (09:42→21:37)
[2025-02-03] MEDS: ASPIR LOW (ENTERIC COATED) 81 MG PO (09:43)
[2025-02-03] MEDS: LASIX 40 MG IV (09:43)
[2025-02-03] MEDS: NORVASC 5 MG PO ×2 (09:44→20:13)
[2025-02-03] MEDS: TENORMIN 25 MG PO (09:44)
[2025-02-03] MEDS: ZITHROMAX 250 MG PO (09:45)
[2025-02-03] MEDS: IMODIUM 2 MG PO (09:47)
--- NOTE | 2025-02-03 10:29 | W.PN.PUL3 ---
Today's Communication / Plan
-
Home oxygen assessment in AM
IS
Cont ABX 5-7 d
consider holding diuresis
Follow pleural fluid cyto
VESTA.ANCA, anticcp and complements.
Assessment
-
89-year-old female with previous history of hypertension, CAD, diabetes presenting to ER with lightheadedness, shortness of breath, productive cough and chest pressure for the past 2 days. On arrival to ER, chest x-ray demonstrating bilateral
pleural effusions, she was notably hypoxemic and placed on oxygen at 14 L. Admitted to IMU for high flow nasal cannula for ongoing hypoxemia, and heart failure exacerbation. We are consulted for evaluation.
Acute hypoxic respiratory failure-requiring up to high flow oxygen on admission.
?Acute heart failure exacerbation (pEF)
proBNP 517
Negative troponin
Pulmonary edema on chest x-ray/pleural effusion
Shortness of breath, productive cough, chest pressure
Chest imaging with bilateral pleural effusions and subsegmental atelectasis. On CAT scan of the chest.
Mild leukocytosis
Mild hyponatremia
Hyperglycemia
Mild transaminitis
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
Hypertension
Hyperlipidemia
Coronary artery disease s/p cardiac cath with stent 12/03/2021
Type 2 diabetes
Left knee replacement 2018
Snoring, patient has declined sleep study
Calcified pleural plaques on chest x-ray
Plan
-
Respiratory status improved - down to 2 L NC - 99% with conversation.
Down from 10-12 L
Lung exam without bronchospasm.
Does not have baseline use at home
she is DNR
-
Prior history of lung disease is noted including --asbestos exposure
She has pleural plaques on imaging but otherwise was not diagnosed with any other lung conditions in the past
No prior PFTs for review
-
Clinical picture not entirely clear: Being diuresed given? Pulmonary edema on imaging and bilateral pleural effusion with moderately increased proBNP.
Repeat echocardiogram with preserved LVEF. No significant valvular abnormalities. Moderate to severe pulmonary hypertension with normal RV function.
-
Certainly infectious etiology such as pneumonia is a possibility with bilateral pleural effusions.
CT without IV contrast, obtained indicating pleural effusion, pulmonary edema, difficult to exclude underlying pneumonia.
-
Mild leukocytosis without fevers.
Negative procalcitonin
-negative influenza/negative COVID/negative streptococcal and Legionella antigens in urine.
Not unreasonable to complete 5 to 7 days of antibiotics. Continue Zosyn/azithromycin.
All cultures negative so far.
-
D-dimer obtained which is elevated but when adjusted for age is unlikely indication for VTE
She has other causes for hypoxemia.
Hold off on further evaluation.
Lower extremity ultrasounds negative for DVT.
Echocardiogram with normal RV function but pulmonary hypertension.
Pulmonary hypertension could be explained by her hypoxemia.
Improved oxygen needs - less likely VTE.
-
Status post right thoracentesis 01/31/2025: 650 cc of serosanguineous fluid
s/p left thoracentesis 02/02/2025 : serosanguinous - exudative.
pH 7.45/white blood cells 352/94 % mononuclear/glucose 250/total protein 3/LDH 100/amylase 38/triglycerides less than 30.
Possible pseudo exudate after diuresis.
No evidence for infection
Cytology pending
TSH normal
Cortisol normal
Mild transaminitis noted-no previous history of cirrhosis--> benign abdominal exam.
-
Increased CRP and sedimentation rate >100---> non specific ---> connective tissue disease associated serositis less likely clinically but possible ->> will add VESTA, antiCCP, ANCA, and complement levels.
-
Left sided pleuritic type pain improved - likely post procedure.
CXR post without PTX
Follow clinically.
-
ECHO-normal LVEF no valvulopathy, normal RV. mod pulmonary HTN.
Cardiology --> case discussed. Uncertain how much more diuresis patient will tolerate.
increased Inbound Call Center Representative consider holding diuresis and observe.
Weight trending lower.
-
Will need outpatient pulmonary evaluation in our office for PFTs and 6MWT
Reviewed with patient
She is DNR.
-
Dr. Graham updated daughter at the bedside at length 02/01/2025.
-
We will follow
Diagnostic Data
Chest X-Ray: 01/30/25-Radiographic findings highly suggestive of interstitial pulmonary edema pattern with associated bilateral pleural effusions, likely on the basis of CHF.
04/22/24- . No acute pulmonary abnormality appreciated. 2. Calcified pleural plaques bilaterally, consistent with asbestos related pleural disease.
11/17/21- Scattered bilateral calcified densities, appearance compatible with bilateral calcified pleural plaques. Findings would be suggestive of previous asbestos exposure.
CT Scan:
Echo: 11/15/24- . Normal left ventricular chamber size myocardial thickness and systolic function. Ejection fraction 60-65%.
2. Mild tricuspid regurgitation with PASP 37 mmgHg.
3. Compared to previous echo from December 2021, findings are similar.
PFT's:
Reports and relevant images were personally reviewed.
Subjective Data
-
Date of Service:
Date of Service: February 03, 2025
Chief Complaint: Pulmonary Follow Up (Acute hypoxemic respiratory failure.)
Objective Data
Data Reviewed
Vital Signs / I&O / Oxygen:
Vital Signs
Temp Pulse Resp BP Pulse Ox
97.7 F 74 21 110/75 98
02/03/25 07:23 02/03/25 09:44 02/03/25 06:00 02/03/25 09:44 02/03/25 06:00
Intake and Output
02/02/25 02/03/25 02/04/25
06:59 06:59 06:59
Intake Total 100 / 100
Balance 100 / 100
SaO2 98
Nasal Cannula flow liters per 15
minute
Physical Exam
General: Comfortable
HEENT: Normocephalic
Cardiovascular: S1-S2
Respiratory: Wheeze (n) and Other (Decreased breath sounds bilaterally)
GI: Soft and Non Distended
Neurology: Awake, Alert, Oriented and AO x 3
Skin: Warm
Labs/Micro/Reports
Lab Data
02/03/25 04:37
02/03/25 04:37
Microbiology
02/01/25 10:44 Feces/Stool Salmonella/Shigella Culture - Preliminary
Culture in Progress
02/01/25 10:44 Feces/Stool Campylobacter Culture - Preliminary
Culture in Progress
02/01/25 10:44 Feces/Stool Shiga Toxin Test - Final
No E. coli Shiga Toxin 1 or 2 detected.
01/30/25 17:19 Blood/Venous Blood Culture - Preliminary
No Growth in 72 hours- Final report to follow
01/30/25 17:19 Blood/Venous Blood Culture - Preliminary
No Growth in 72 hours- Final report to follow
02/02/25 11:00 Pleural Fluid Gram Stain - Preliminary
01/31/25 15:23 Pleural Fluid Fungal Smear - Final
No yeast or fungal elements seen.
01/31/25 15:23 Pleural Fluid Fungal Culture - Preliminary
Culture in progress.
Positive cultures are reported as soon as detected.
Final report to follow in four to five weeks.
01/31/25 15:23 Pleural Fluid Body Fluid Culture - Preliminary
No Growth After 48 Hours
01/31/25 15:23 Pleural Fluid Gram Stain - Preliminary
02/01/25 10:44 Sputum Respiratory Culture - Preliminary
Yeast
02/01/25 10:44 Sputum Gram Stain - Preliminary
02/01/25 10:44 Feces/Stool C. difficile GDH Antigen & Toxins - Final
Negative for toxigenic C.difficile
02/01/25 10:44 Feces/Stool Norovirus (PCR) - Final
Negative for Norovirus GI and GII.
01/31/25 00:04 Nose Nasal Screen MRSA (PCR) - Final
MRSA not detected - performed by PCR methodology.
01/30/25 22:39 Urine Legionella Urinary Antigen - Final
Negative for Legionella pneumophila Serogroup 1 antigen.
A negative result does not rule out the possiblity of
Legionella infection due to other serogroups or species of
Legionella. Clinical correlation is recommended.
01/30/25 22:39 Urine Streptococcus pneumoniae Antigen (M - Final
Negative for Streptococcus pneumoniae antigen.
A negative result does not exclude infection with
Streptococcus pneumoniae. Clinical correlation is
recommended.
[2025-02-03 11:53] LABS: Glucose - Point of Care 326 mg/dl (70-99)
[2025-02-03] MEDS: FARXIGA 10 MG PO (11:56)
[2025-02-03] MEDS: NOVOLOG FLEXPEN-LOW RESISTANCE 4 UNITS SC (11:57)
--- NOTE | 2025-02-03 13:56 | W.PN.HOSP.TC ---
Today's Communication/Plan
-
Wean O2
Continue Abx
Oral diuretics
DC planning
Assessment / Plan
Assessment / Plan
Assessment:
Acute hypoxic respiratory failure in setting of acute HFpEF
- s/p Hi-Flow, now on 2L NC; wean O2 as able
- CXR: interstitial pulmonary edema pattern with associated bilateral pleural effusions. BNP 517.
- CT chest: Moderate bilateral pleural effusions with adjacent atelectasis. There is mild interlobular septal thickening suggestive of mild congestion. There are superimposed small nodular opacities predominantly within the right mid and upper lung
which measure up to 5 mm there are suggestive of an infectious/inflammatory process.
- D. Dimer age adjusted to near normal. doubt VTE with negative Doppler and no RV strain on Echo
- s/p R thoracentesis 01/31: 650 cc removed. transudative vs pseudo-exudative
- s/p L thoracentesis 02/02: 800 cc removed. Patient has L sided pleuritis post-procedure x 24 hours which is now resolved.
- s/p IV Lasix course. Now on 40mg daily
- Farxiga added
- Echo: EF 60-65%, normal LV size/function.
- Cards and Pulmonary following
Possible pneumonia
- CT chest suggestive of infectious process
- continue Zosyn + Azithromycin x 4-7 days
- elevated inflammatory markers; ILD Workup sent by pulmonary
Mild transaminitis
- trend
- no RUQ pain
acute Hyponatremia in setting of acute CHF
- follow BMP
Acute hyperkalemia
- resolved
Essential HTN
- continue CC/BB/hydralazine
HLD - statin
CAD s/p stent 2021
- continue ASA/Statin
Type 2 Diabetes Mellitus
- holding Metformin/Glipizide
- SSI
- A1c: 7.0%
Chronic pleural plaques
- Hx of Asbestos exposure
Hypokalemia - replete prn
DVT ppx: Lovenox
Code: DNR/DNI, confirmed with patient
Plan d/w Daughter Tatiana
Anticipated Discharge: 24 - 48 hours
Subjective/Interval History
-
Date of Service: February 03, 2025
post thoracentesis pleuritis improved, now using only Tylenol
down to 2L NC today
Objective Data
-
Labs:
Laboratory Results
02/03/25
04:37
WBC 11.4 H
Hgb 11.6 L
Hct 34.5 L
Plt Count 249
Sodium 131 L
Potassium 3.5
Chloride 95 L
Carbon Dioxide 32 H
BUN 31 H
Creatinine 1.3 H
Glucose 159 H
Calcium 8.9
Vital Signs:
Vital Signs
Temp Pulse Resp BP Pulse Ox
98.3 F 66 17 149/59 100
02/03/25 11:57 02/03/25 12:00 02/03/25 12:00 02/03/25 12:00 02/03/25 13:17
I&O
02/02/25 02/03/25 02/04/25
06:59 06:59 06:59
Intake Total 100 / 100
Balance 100 / 100
Physical Exam
-
General: No Apparent Distress
HEENT: Normocephalic and Atraumatic
Respiratory: Negative Wheezes
Cardiac: Regular Rhythm and S1/S2
GI: Soft
Musculoskeletal: No Edema
Neuro: AO x 3
Psych: Calm
Data Reviewed
-
Total Time Spent with Patient (in minutes): 45
Labs: Labs Reviewed by me
--- NOTE | 2025-02-03 15:14 | CM ---
Addendum entered by London Huang 02/03/25 16:40:
Consult for pricing on Farxiga 10 mg and Jardiance 10mg. No frequency noted. Pharmacy is [facility]. Will not corbett without a script. Ordering MD notified. CM advised to notify CM when scripts have been forwarded. Will then call for pricing. MD
acknowledged receipt of request. Awaiting MD notification.
Original Note:
2L O2 wean as able, IV/Zosyn. Discharge POC: Therapy rec changed from SNF to HH PT/OT. Referral placed to [facility] certified for RN, PT/OT.
--- NOTE | 2025-02-03 15:20 | PN.CDI ---
CDI
- -
CDI:
Physician Documentation Request
Admit Date: 01/30/25 18:01
Dear Doctor Carmen,
Please review the following and provide your response in the progress notes.
Clinical Indicators:
Pt admitted with CHFpEF/AHRF/Possible PNA
Pulmonology note 02/03,'consider holding diuresis..
Renal functions are as below/Pt has been on IV diuresis
Laboratory Tests
01/30/25 02/01/25 02/03/25
14:44 05:02 04:37
Creatinine 0.9 1.1 H 1.3 H
Clarify which of the following accurately represents the patient's renal status:
[place]
Abnormal lab value
Other ( please specify)
Criteria for [place]*
1 Increase in serum creatinine by > or = to 0.3 mg/dL (> or = to 26.5 micromol/L) within 48 hours, OR
2 Increase in serum creatinine to > or = to 1.5 times baseline, which is known or presumed to have occurred within 7 days, OR
3 Urine volume < 0.5 nL/kg/hour for six hours
Use of terms such as suspected, likely, concern for, or probable (associated with a specific diagnosis that is being evaluated, monitored, or treated as if it exists) are acceptable and can be coded in the inpatient setting, when documented at the
time of discharge.
Thank you,
Tata Lopez RN
CDI Specialist
[facility]
Please use your independent medical judgment in providing your response.
*Source: Kidney Disease: Improving Global Outcomes (KDIGO) 2012
[2025-02-03] MEDS: LIPITOR 40 MG PO (17:17)
[2025-02-03] MEDS: LOVENOX 30 MG SC (17:18)
[2025-02-03] MEDS: NOVOLOG FLEXPEN-LOW RESISTANCE 2 UNITS SC (17:22)
[2025-02-03 17:24] LABS: Glucose - Point of Care 206 mg/dl (70-99)
[2025-02-03 21:45] LABS: Glucose - Point of Care 215 mg/dl (70-99)
[2025-02-04 03:00] VITALS: BP 151/64
[2025-02-04] MEDS: ZOSYN 50 IV (05:37)
[2025-02-04 06:00] VITALS: BMI 23.3
[2025-02-04 07:00] VITALS: BP 135/56
[2025-02-04 07:13] LABS: Glucose - Point of Care 173 mg/dl (70-99)
[2025-02-04] MEDS: ZITHROMAX 250 MG PO (08:27)
[2025-02-04] MEDS: TENORMIN 25 MG PO (08:27)
[2025-02-04] MEDS: APRESOLINE 20 MG PO (08:27)
[2025-02-04] MEDS: NORVASC 5 MG PO (08:28)
[2025-02-04] MEDS: ASPIR LOW (ENTERIC COATED) 81 MG PO (08:28)
[2025-02-04] MEDS: FARXIGA 10 MG PO (08:28)
[2025-02-04] MEDS: LASIX 40 MG PO (08:28)
[2025-02-04] MEDS: NOVOLOG FLEXPEN-LOW RESISTANCE 1 UNITS SC (08:29)
[2025-02-04 09:21] LABS: Blood Urea Nitrogen 40 mg/dl (7-17); Calcium 8.9 mg/dl (8.4-10.2); Carbon Dioxide 31 mmol/L (22-30); Chloride 96 mmol/L (98-107); Estimated Creatinine Clearance 23 ml/min; Glucose 174 mg/dl (70-99); Potassium 3.4 mmol/L (3.5-5.1); Sodium 131 mmol/L (135-145); eGFR 43.27
--- NOTE | 2025-02-04 10:09 | CM ---
Addendum entered by Bella Castro 02/04/25 14:43:
Daughter will take pt home in private car
[facility]
fax: [phone]
Original Note:
Drug corbett for Farxiga 10 mg daily for 30 days is $47
Continues on IV ABX
Remains on Room air.
Possible DC today- pending Cardiology
Plan: DC to [facility] with services
--- NOTE | 2025-02-04 10:54 | W.PN.CARDCBS ---
Addendum entered and electronically signed by Abi Fernandez DO 02/04/25 18:43:
I saw and examined the patient.
The Senior Technical Trainer's note was reviewed and I agree with the note.
Comment: Patient was seen and examined. Interval chart/studies reviewed since she was last seen by me. Overall feeling better now on room air. Denies chest pain or shortness of breath. Anxious for discharge home
GEN: NAD. Awake alert and orient x 3. On room air
HEENT: mmm
LUNGS: Mildly decreased at bases otherwise CTA, no wheezes/rales, on room air
CV: Reg, S1/S2, no murmur, rub or gallop
ABD: soft, BS+, NT/ND
EXT: No edema
NEURO: Gross non-focal
Plan:
Acute hypoxic respiratory failure initially requiring high flow oxygen with bilateral pleural effusions.
-Etiology not completely clear but likely a component of heart failure with preserved ejection fraction in addition to infectious etiology/pneumonia
-Bilateral pleural effusions status post right thoracentesis 01/31 with 650 cc removed and left thoracentesis 02/02 with 800 cc removed.
-2D echocardiogram with normal biventricular size and systolic function and no significant valve abnormality with moderate to severe pulmonary hypertension.
-CRP elevated 61.TSH within normal limits.
-Mild leukocytosis without fevers. Negative procalcitonin. Negative influenza, COVID and Legionella. Pleural fluid cultures currently negative
-Plan to complete antibiotics per pulmonary with outpatient follow-up chest x-ray and pulmonary follow-up
-Heart failure with preserved ejection fraction, proBNP 517.
-New diagnosis this admission
-Cardiac troponins not elevated
-Patient started on oral Lasix 40 mg with potassium 20 mg this admission. Check BMP in 5 to 7 days as outpatient.
-Given new diagnosis of acute heart failure with underlying CKD, SGLT 2 antagonist could be beneficial. Farxiga $47 a month.
-Repeat 2D echocardiogram to reassess pulmonary pressures in 3 months
History of type 2 diabetes on metformin and glipizide as an outpatient with new start of Farxiga. Defer to medical service for any further adjustments to therapy. Hemoglobin A1c 7%
CAD s/p 3.0 mm Promus HERACLIO to the mid LAD 12/03/2021
-No symptoms of chest pain
-Cardiac troponins not elevated.
-Continue aspirin 81 mg daily
-Continue current medical therapy including statin. Lipid profile this admission: Total cholesterol 141, LDL 32, HDL 89. Triglycerides 101
Hypertension: Blood pressures better controlled on current therapy which includes: Amlodipine 5 mg twice daily, atenolol 25 mg daily, hydralazine 20 mg 3 times daily, Lasix 40 mg daily. Will repeat labs as an outpatient to reassess renal function
and potassium. FYI: Patient has a history of hyperkalemia on valsartan was discontinued mid November.
Hyponatremia/hypokalemia with prior history of hyperkalemia on ARB: Close monitoring of basic metabolic profile on Lasix with potassium supplementation
Renal insufficiency: Monitor renal function closely with new start of Lasix and Farxiga. Consider outpatient nephrology follow-up
Discharge planning with outpatient cardiology follow-up arranged
Original Note:
Today's Communication / Plan
-
Discharge home on Lasix 40 mg and potassium 20 mEq
New to Farxiga 10 mg daily
BMP 5 to 7 days, order placed on chart
Outpatient cardiology follow-up has been arranged
Impression / Plan
-
PCP: Dr. Mary Eason
Cardiology: Dr. Fernandez
Impression:
Admitted with SOB and acute hypoxic respiratory failure 01/30/2025, probnp 517
Acute hypoxic respiratory failure requiring high flow oxygen therapy, improved
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
Bilateral pleural effusions
s/p R thoracentesis 01/31: 650 cc removed. transudative vs pseudo-exudative
s/p L thoracentesis 02/02: 800 cc removed
Possible PNA
Acute HFpEF
Hyponatremia
Elevated LFTs
HTN emergency
h/o HTN
CAD s/p 3.0 mm Promus HERACLIO to the mid LAD 12/03/2021
cRBBB
DM 2
Echo 02/01/2025: EF 60 to 65%. Normal LV ventricular size, wall thickness and systolic function with no regional wall motion abnormalities. Moderate to large pleural effusion
Echo 11/15/2024: EF 60 to 65%, mild TR with PASP 37 mmHg, unchanged compared to echo 12/2021
Plan:
-Admitted with SOB and acute hypoxic respiratory failure 01/30/2025 felt to be secondary to acute heart failure, probnp 517 as well as bilateral pleural effusions. Symptomatically has improved now on room air and eager to go home.
Treatment of PNA per primary team
-Bilateral pleural effusions on admission. Status post right thoracentesis 12 1 with 650 cc removed and left thoracentesis 12 3 with 800 cc removed. She feels much better following thoracentesis. Appreciate pulmonary input.
Improved oxygenation initially requiring high flow oxygen now on room air.
Will need follow-up with pulmonary as outpatient
-Heart failure with preserved ejection fraction, proBNP 517. New diagnosis this admission
Echocardiogram showed preserved ejection fraction and no significant valvular disease this admission
Patient started on oral Lasix 40 mg with potassium 20 mg this admission. Check BMP in 5 to 7 days as outpatient. Order has been placed on chart.
Given new diagnosis of acute heart failure with underlying CKD, SGLT 2 antagonist could be beneficial. Farxiga $47 a month. Patient agreeable to start.
Patient is diabetic and on metformin and glipizide as outpatient. Will defer to primary service if adjustments need to be made in these medications with addition of Farxiga.
Discharge planning with outpatient cardiology follow-up arranged
PREADMIT DATA
-Patient came to the emergency room yesterday with SOB and was admitted with acute hypoxic respiratory failure and cardiology is now consulted for possible acute HF. Patient was last seen in cardiology office on 11/08/2024 and at that time was
referred for echo to follow-up on history of CAD and HTN. As noted above patient completed echo on 11/15/2024 and EF was preserved at 60 to 65% and overall echo unchanged compared to echo from 12/2021. Around that same time patient had outpatient
labs that showed hyperkalemia and her PCP stopped her dose of valsartan 80 mg BID mid November. Patient called cardiology office with increasing BP by home readings and her amlodipine was increased to 5 mg BID and response. Patient says SOB
started rather suddenly 3 days ago and was initially BABIN and then resting SOB. Patient was visibly dyspneic and family wanted to bring her to the hospital, but she refused and finally was so out of breath and weak that she asked the family to bring
her to the hospital yesterday and she was noted to be hypoxic. CXR was concerning for possible CHF and patient was given Lasix 40 mg IV x 1 without much subjective improvement and oxygenation continued to worsen. Patient was also started on
antibiotics for possible PNA and again oxygenation continued to worsen. Patient was eventually started on high flow and remains tenuous on high flow now with the possibility of noninvasive ventilation being considered. Patient says that overall
she feels better compared to admission. Patient had chest pressure on the drive from [place] to the hospital yesterday, but no recurrence and troponin levels undetectable.
Progress Note - Tennis Desk Team Member
Subjective
Date of Service: February 04, 2025
Patient seen and examined. Patient resting comfortably in bed on room air. Reports she feels back to baseline and is eager to go home
Objective
Labs:
02/03/25 04:37
02/04/25 08:26
Labs
Hgb 11.6 g/dL (12.0-16.0) L 02/03/25 04:37
Hct 34.5 % (37.0-47.0) L 02/03/25 04:37
Plt Count 249 10^3/uL (130-400) 02/03/25 04:37
Sodium 131 mmol/L (135-145) L 02/04/25 08:26
Potassium 3.4 mmol/L (3.5-5.1) L 02/04/25 08:26
BUN 40 mg/dl (7-17) H 02/04/25 08:26
Creatinine 1.2 mg/dL (0.6-1.0) H 02/04/25 08:26
Glucose 174 mg/dl (70-99) H 02/04/25 08:26
Troponins
02/02/25
17:41
Troponin I 0.021
Vital Signs and I&O:
Vital Signs
Temp Pulse Resp BP Pulse Ox
98.4 F 79 20 135/56 91
02/04/25 07:00 02/04/25 07:00 02/04/25 07:00 02/04/25 07:00 02/04/25 07:00
Vital Signs
Temp Pulse Resp BP Pulse Ox
98.4 F 79 20 135/56 91
02/04/25 07:00 02/04/25 07:00 02/04/25 07:00 02/04/25 07:00 02/04/25 07:00
Intake & Output
02/02/25 02/03/25 02/04/25 02/05/25
06:59 06:59 06:59 06:59
Intake Total 100 / 100 580 / 580 180 / 180
Output Total 300 / 300
Balance 100 / 100 280 / 280 180 / 180
Physical Exam
Physical Exam
GEN: No distress, awake, Ox3
HEENT: supple, anicteric, mmm
LUNGS: Mildly decreased at bases otherwise CTA, no wheezes/rales, on room air
CV: Reg, S1/S2, no murmur, rub or gallop
ABD: soft, BS+, NT/ND
EXT: No edema, clubbing or cyanosis
NEURO: Gross non-focal
SKIN: No rash, warm, dry,
[2025-02-04 11:00] VITALS: BP 136/62
[2025-02-04] MEDS: KCL 20 MEQ PO (11:55)
[2025-02-04 11:56] LABS: Glucose - Point of Care 209 mg/dl (70-99)
[2025-02-04] MEDS: NOVOLOG FLEXPEN-LOW RESISTANCE 2 UNITS SC (12:12)
[2025-02-04] MEDS: ZOSYN IV ×2 (12:12→13:41)
--- NOTE | 2025-02-04 13:15 | W.PN.PUL3 ---
Today's Communication / Plan
-
Discharge planning
5 days of antibiotics
Follow-up pulmonary
Serology and cytology will be followed
Sign off
Assessment
-
89-year-old female with previous history of hypertension, CAD, diabetes presenting to ER with lightheadedness, shortness of breath, productive cough and chest pressure for the past 2 days. On arrival to ER, chest x-ray demonstrating bilateral
pleural effusions, she was notably hypoxemic and placed on oxygen at 14 L. Admitted to IMU for high flow nasal cannula for ongoing hypoxemia, and heart failure exacerbation. We are consulted for evaluation.
Acute hypoxic respiratory failure-requiring up to high flow oxygen on admission.
?Acute heart failure exacerbation (pEF)
proBNP 517
Negative troponin
Pulmonary edema on chest x-ray/pleural effusion
Shortness of breath, productive cough, chest pressure
Chest imaging with bilateral pleural effusions and subsegmental atelectasis. On CAT scan of the chest.
Mild leukocytosis
Mild hyponatremia
Hyperglycemia
Mild transaminitis
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
Hypertension
Hyperlipidemia
Coronary artery disease s/p cardiac cath with stent 12/03/2021
Type 2 diabetes
Left knee replacement 2017
Snoring, patient has declined sleep study
Calcified pleural plaques on chest x-ray
Plan
-
Oxygen has been weaned off
Ambulated around the [place] without significant symptoms.
Lung exam without bronchospasm.
Does not have baseline use at home
she is DNR
-
Prior history of lung disease is noted including --asbestos exposure
She has pleural plaques on imaging but otherwise was not diagnosed with any other lung conditions in the past
No prior PFTs for review
-
Clinical picture not entirely clear: Being diuresed given? Pulmonary edema on imaging and bilateral pleural effusion with moderately increased proBNP.
Repeat echocardiogram with preserved LVEF. No significant valvular abnormalities. Moderate to severe pulmonary hypertension with normal RV function.
-
Certainly infectious etiology such as pneumonia is a possibility with bilateral pleural effusions.
CT without IV contrast, obtained indicating pleural effusion, pulmonary edema, difficult to exclude underlying pneumonia.
-
Mild leukocytosis without fevers.
Negative procalcitonin
-negative influenza/negative COVID/negative streptococcal and Legionella antigens in urine.
Complete 5 days of antibiotics.
All cultures negative so far.
-
D-dimer obtained which is elevated but when adjusted for age is unlikely indication for VTE
She has other causes for hypoxemia.
Hold off on further evaluation.
Lower extremity ultrasounds negative for DVT.
Echocardiogram with normal RV function but pulmonary hypertension.
Pulmonary hypertension could be explained by her hypoxemia.
Improved oxygen needs - less likely VTE.
-
Status post right thoracentesis 01/31/2025: 650 cc of serosanguineous fluid
s/p left thoracentesis 02/02/2025 : serosanguinous - exudative.
pH 7.45/white blood cells 352/94 % mononuclear/glucose 250/total protein 3/LDH 100/amylase 38/triglycerides less than 30.
Possible pseudo exudate after diuresis.
No evidence for infection
Cytology pending-will follow
TSH normal
Cortisol normal
Mild transaminitis noted-no previous history of cirrhosis--> benign abdominal exam.
-
Increased CRP and sedimentation rate >100---> non specific ---> connective tissue disease associated serositis less likely clinically but possible ->> will add VESTA, antiCCP, ANCA, and complement levels.
-
Left sided pleuritic type pain improved - likely post procedure.
CXR post without PTX
Follow clinically.
-
ECHO-normal LVEF no valvulopathy, normal RV. mod pulmonary HTN.
Cardiology --> case discussed. Uncertain how much more diuresis patient will tolerate.
increased Certified Master Safecracker consider holding diuresis and observe.
Weight trending lower.
-
Will need outpatient pulmonary evaluation in our office for PFTs and 6MWT
Reviewed with patient
She is DNR.
-
Dr. Graham updated daughter at the bedside at length 02/01/2025.
-
Okay to discharge from my perspective with outpatient pulmonary follow-up. Information will be left in the chart
Discussed with primary team and cardiology
Sign off
Diagnostic Data
Chest X-Ray: 01/30/25-Radiographic findings highly suggestive of interstitial pulmonary edema pattern with associated bilateral pleural effusions, likely on the basis of CHF.
04/22/24- . No acute pulmonary abnormality appreciated. 2. Calcified pleural plaques bilaterally, consistent with asbestos related pleural disease.
11/17/21- Scattered bilateral calcified densities, appearance compatible with bilateral calcified pleural plaques. Findings would be suggestive of previous asbestos exposure.
CT Scan:
Echo: 11/15/24- 1. Normal left ventricular chamber size myocardial thickness and systolic function. Ejection fraction 60-65%.
2. Mild tricuspid regurgitation with PASP 37 mmgHg.
3. Compared to previous echo from December 2021, findings are similar.
PFT's:
Reports and relevant images were personally reviewed.
Subjective Data
-
Date of Service:
Date of Service: February 04, 2025
Chief Complaint: Pulmonary Follow Up (Acute hypoxemic respiratory failure.)
Subjective:
Clinically improved
Oxygen has been weaned off
No significant shortness of breath
Denies any chest pain
Objective Data
Data Reviewed
Vital Signs / I&O / Oxygen:
Vital Signs
Temp Pulse Resp BP Pulse Ox
98 F 77 16 136/62 91
02/04/25 11:00 02/04/25 11:00 02/04/25 11:00 02/04/25 11:00 02/04/25 11:00
Intake and Output
02/03/25 02/04/25 02/05/25
06:59 06:59 06:59
Intake Total 580 / 580 180 / 180
Output Total 300 / 300
Balance 280 / 280 180 / 180
SaO2 91
Nasal Cannula flow liters per 2
minute
Physical Exam
General: Comfortable
HEENT: Normocephalic
Cardiovascular: S1-S2
Respiratory: Wheeze (n) and Other (Decreased breath sounds bilaterally)
GI: Soft and Non Distended
Neurology: Awake, Alert, Oriented and AO x 3
Skin: Warm
Labs/Micro/Reports
Lab Data
02/03/25 04:37
02/04/25 08:26
Microbiology
02/02/25 11:00 Pleural Fluid Body Fluid Culture - Preliminary
No Growth After 48 Hours
02/02/25 11:00 Pleural Fluid Gram Stain - Preliminary
01/31/25 15:23 Pleural Fluid Acid Fast Bacilli Smear - Preliminary
01/31/25 15:23 Pleural Fluid Acid Fast Bacilli Culture - Preliminary
01/30/25 17:19 Blood/Venous Blood Culture - Preliminary
No Growth in 4 days- Final report to follow
01/30/25 17:19 Blood/Venous Blood Culture - Preliminary
No Growth in 4 days- Final report to follow
01/31/25 15:23 Pleural Fluid Body Fluid Culture - Final
No Growth After 72 Hours
01/31/25 15:23 Pleural Fluid Gram Stain - Final
02/01/25 10:44 Sputum Respiratory Culture - Final
Yeast
02/01/25 10:44 Sputum Gram Stain - Final
02/01/25 10:44 Feces/Stool Salmonella/Shigella Culture - Final
No Salmonella, Shigella, Aeromonas or Plesiomonas species
isolated.
02/01/25 10:44 Feces/Stool Campylobacter Culture - Final
No Campylobacter species isolated.
02/01/25 10:44 Feces/Stool Shiga Toxin Test - Final
No E. coli Shiga Toxin 1 or 2 detected.
01/31/25 15:23 Pleural Fluid Fungal Smear - Final
No yeast or fungal elements seen.
01/31/25 15:23 Pleural Fluid Fungal Culture - Preliminary
Culture in progress.
Positive cultures are reported as soon as detected.
Final report to follow in four to five weeks.
02/01/25 10:44 Feces/Stool C. difficile GDH Antigen & Toxins - Final
Negative for toxigenic C.difficile
02/01/25 10:44 Feces/Stool Norovirus (PCR) - Final
Negative for Norovirus GI and GII.
--- NOTE | 2025-02-04 13:44 | W.PN.HOSP.TC ---
Today's Communication/Plan
-
dc to home/VN
Assessment / Plan
Assessment / Plan
Assessment:
Acute hypoxic respiratory failure in setting of acute HFpEF
- s/p Hi-Flow, now weaned to RA and passed home O2 evaluation
- CXR: interstitial pulmonary edema pattern with associated bilateral pleural effusions. BNP 517.
- CT chest: Moderate bilateral pleural effusions with adjacent atelectasis. There is mild interlobular septal thickening suggestive of mild congestion. There are superimposed small nodular opacities predominantly within the right mid and upper lung
which measure up to 5 mm there are suggestive of an infectious/inflammatory process.
- D. Dimer age adjusted to near normal. doubt VTE with negative Doppler and no RV strain on Echo
- s/p R thoracentesis 01/31: 650 cc removed. transudative vs pseudo-exudative
- s/p L thoracentesis 02/02: 800 cc removed. Patient has L sided pleuritis post-procedure x 24 hours which is now resolved.
- s/p IV Lasix course. Now on 40mg daily + KCL
- Farxiga added/Hydralazine added
- Echo: EF 60-65%, normal LV size/function.
- Cards and Pulmonary following
Possible pneumonia
- CT chest suggestive of infectious process
- s/p 5 days of Zosyn + Azithromycin
- elevated inflammatory markers; ILD Workup sent by pulmonary
[place] from IV diuresis
- improving; repeat BMP in 1 week
Mild transaminitis
- trend
- no RUQ pain
acute Hyponatremia in setting of acute CHF
- follow BMP
Acute hyperkalemia
- resolved
Essential HTN
- continue CC/BB/hydralazine
HLD - statin
CAD s/p stent 2021
- continue ASA/Statin
Type 2 Diabetes Mellitus
- resume Glipizide at discharge. stop Metformin. On Farxiga
- SSI
- A1c: 7.0%
Chronic pleural plaques
- Hx of Asbestos exposure
Hypokalemia - replete prn
DVT ppx: Lovenox
Code: DNR/DNI, confirmed with patient
Plan d/w Daughter Tatiana
More than 30 minutes spent in discharge including
Final examination of the patient
Summarizing hospital stay
Instructions for continuing care to all relevant caregivers
Preparation of discharge records, prescriptions, and referral forms
Total time spent (in minutes):41
Anticipated Discharge: Today
Subjective/Interval History
-
Date of Service: February 04, 2025
weaned off O2 to RA and passed home O2 evaluation
denies cp or sob
Objective Data
-
Labs:
Laboratory Results
02/04/25
08:26
Sodium 131 L
Potassium 3.4 L
Chloride 96 L
Carbon Dioxide 31 H
BUN 40 H
Creatinine 1.2 H
Glucose 174 H
Calcium 8.9
Vital Signs:
Vital Signs
Temp Pulse Resp BP Pulse Ox
98 F 77 16 136/62 91
02/04/25 11:00 02/04/25 11:00 02/04/25 11:00 02/04/25 11:00 02/04/25 11:00
I&O
02/03/25 02/04/25 02/05/25
06:59 06:59 06:59
Intake Total 580 / 580 180 / 180
Output Total 300 / 300
Balance 280 / 280 180 / 180
Physical Exam
-
General: No Apparent Distress
HEENT: Normocephalic and Atraumatic
Respiratory: Negative Wheezes
Cardiac: Regular Rhythm and S1/S2
GI: Soft and Nontender
Genito-urinary: No Costovertebral Tender
Musculoskeletal: No Edema
Neuro: AO x 3
Psych: Calm
Data Reviewed
-
Total Time Spent with Patient (in minutes): 42
Labs: Labs Reviewed by me
--- NOTE | 2025-02-04 13:46 | W.DCSUMMARY ---
Discharge Summary
Discharge Data
Date of Admission: 01/30/25
Date of Discharge: 02/04/25
-
Pending Results: No
Hospital Course
89 y/o F, hx of HTN, HLD, CAD, type 2 DM presented to ER with SOB and chest pressure x 2 days. She was placed on 14L NC in ER and found to have pneumonia and CHF on CT imaging. She was admitted to IMU floor and started on antibiotics x 5 days along
with a course of IV diuretics. VTE workup was negative. She had bilateral pleural effusions requiring bilateral thoracentesis. She was able to wean to RA from Hi-Flow O2. Hydralazine and Farxiga were added; along with Lasix and KCL. Metformin was
stopped. Patient passed home O2 evaluation and was discharged home 02/04/25 with VN.
Echocardiogram showed EF 60-65% and normal LV size/function.
Discharge Plan
-
Patient Disposition: Home with Home Care
Discharge Diagnosis/Procedures: pneumonia, acute CHF, Acute hypoxic respiratory failure resolved
Condition: Fair
Diet: Low Cholesterol, 2 Gram Sodium, Diabetic, Carb Controlled and Restrict fluids to 48 oz
Activity: As tolerated
Bathing Restrictions: None
Blood Work: BMP 5 to 7 days post discharge - Script given
Other Services: VN, PT and OT
Instructions: *[facility] Heart Failure Instructions
Referrals:
Kim Bustillo PA-C [Specified Professional Personl, Cardiology] - 02/17/25 2:40 pm
Referral Note: You have cardiology follow-up with Kim Bustillo PA-C on February 17 at 2:40 PM in [place] [facility]. If you are unable to make this appointment please call [phone] to reschedule
Freddie Keenan MD [Active, Pulmonary Medicine] - in four to six weeks
aMry Eason DO [Family Provider, Internal Medicine] - in less than 1 week
Prescriptions:
New
dapagliflozin propanediol [Farxiga] 10 mg tablet
10 mg PO DAILY Qty: 30 5RF
furosemide 40 mg Tablet
40 mg PO DAILY Qty: 30 0RF
hydralazine 10 mg Tablet
20 mg PO TID Qty: 180 0RF
potassium chloride [Klor-Con M20] 20 mEq Tablet,Er Particles/Crystals
20 meq PO DAILY Qty: 30 0RF
Deep [place] Nasal 0.65 % Aerosol,[place]
2 spray intranasal QIDPRN PRN (Reason: dry nares) Qty: 44 0RF
Continued
aspirin 81 mg Capsule
81 mg PO DAILY
loperamide 2 mg Tablet
2 mg PO DAILYPRN PRN (Reason: diarrhea)
acetaminophen 500 mg Tablet
1,000 mg PO DAILYPRN PRN (Reason: mild pain)
PreserVision AREDS-2 250-90-40-1 mg Capsule
1 tab PO BID
atorvastatin 40 mg Tablet
40 mg PO QPM Qty: 30 3RF
atenolol 25 mg Tablet
25 mg PO DAILY Qty: 30 0RF
amlodipine 5 mg Tablet
5 mg PO BID Qty: 60 0RF
glipizide 5 mg Tablet
2.5 mg PO DAILY Qty: 30 0RF
Discontinued
metformin 500 mg tablet
500 mg PO BID
Discharge Orders:
Discharge Patient (As Directed); Ordered 02/04/25
Ordered By: Johny Morales
Discharge Date and Time
Print Language: KHMER
[2025-02-05 07:28] LABS: ANA, IgG Reflex to HEp-2 None Detected (None Detected)
[2025-02-05 07:37] LABS: CCP Antibody IgG/IgA 2 Units (0-19)
[2025-02-06 01:31] LABS: Serine Protease-3, IgG 0 AU/mL (0-19)
== END 2025-02-04 15:40 | disposition home health service (06) | DRG 291 ==
LOC: 4 EAST ACU 18:01
PROVIDERS: Emergency Medicine; Internal Medicine Cardiovascular Disease; Internal Medicine Critical Care Medicine; Nurse Practitioner Family; Radiology Vascular & Interventional Radiology; ADMITTING PHYSICIAN Hospitalist; ATTENDING PHYSICIAN Internal Medicine; CONSULT PHYSICIAN Internal Medicine; CONSULT PHYSICIAN Internal Medicine Cardiovascular Disease; EMERGENCY PHYSICIAN Student in an Organized Health Care Education/Training Program; FAMILY PHYSICIAN Internal Medicine
PROC: 0W993ZZ Drainage of Right Pleural Cavity, Percutaneous Approach (ICD-10-PCS; 2025-01-31)
PROC: 0W9B3ZZ Drainage of Left Pleural Cavity, Percutaneous Approach (ICD-10-PCS; 2025-02-02)
DX: I11.0 Hypertensive heart disease with heart failure (principal); I50.31 Acute diastolic (congestive) heart failure; J96.01 Acute respiratory failure with hypoxia; J18.9 Pneumonia, unspecified organism; E87.1 Hypo-osmolality and hyponatremia; N17.9 Acute kidney failure, unspecified; I16.1 Hypertensive emergency; J98.11 Atelectasis; Z11.52 Encounter for screening for COVID-19; E87.5 Hyperkalemia; Z66 Do not resuscitate; E11.65 Type 2 diabetes mellitus with hyperglycemia; I25.10 Atherosclerotic heart disease of native coronary artery without angina pectoris; E87.6 Hypokalemia; Z79.82 Long term (current) use of aspirin; Z79.899 Other long term (current) drug therapy
CPT/HCPCS: 32555; 71045; 71250; 80048; 80053; 80061; 80202; 82150; 82533; 82945; 82962; 83036; 83516; 83615; 83880; 83930; 83935; 83986; 84145; 84155; 84157; 84300; 84443; 84478; 84484; 85025; 85027; 85379; 85652; 86038; 86140; 86160; 86200; 87015; 87040; 87045; 87046; 87070; 87102; 87116; 87205; 87206; 87324; 87427; 87449; 87502; 87641; 87798; 87811; 87899; 88112; 88305; 89051; 92610; 93005; 93308; 93970; 96365; 96375; 97116; 97163; 97167; 97530; 97535; 99291